=== PATIENT | female | born 1940 | race Caucasian/White ===

== ENCOUNTER 2018-05-26 09:11 | Inpatient (IN) | payer MEDICARE ==
[~2018-05-26] VITALS: Ht 172.7 cm; Wt 64.0 kg
[~2018-05-26 09:11] MED LIST: ARICEPT10 M1 PO; PREVACID30 M2 PO; Z NIFEDIPINE PO; Z.0.ATENOLOL100 MG PO; Z.0.FLEXERIL10 MG PO; Z.0.PLAVIX75 MG PO; Z.0.RESTORIL15 MG PO; Z.0.TRICOR145 MG PO; [UNRECOGNIZED DRUG - OTHER] PO
[2018-05-26] MEDS ORDERED: ONDANSETRON HCL INJ 2 MG/ML VIAL IV STA (09:50)
[2018-05-26] MEDS ORDERED: MORPHINE SULFATE INJ 4 MG/ML INJ IV STA (09:50)
[2018-05-26 10:45] LABS: BASOPHILS % 0.1 % (0.0-1.0); HEMATOCRIT 38.1 % (34.2-44.1); LYMPHOCYTES # (AUTO) 0.9 (1.0-3.2); LYMPHOCYTES % 4.1 % (18.0-39.1); MEAN CORPUSCULAR HGB CONC 34.1 g/dL (31-35); MEAN CORPUSCULAR VOLUME 87.8 fL (81-99); MONOCYTES # (AUTO) 1.3 (0.2-0.8); MONOCYTES % 6.2 % (4.4-11.3); NEUTROPHILS # (AUTO) 19.3 (2.1-6.9); PLATELET COUNT 366 x10e3/uL (140-360); RED BLOOD COUNT 4.34 x10e6/uL (3.6-5.1); RED CELL DISTRIBUTION WIDTH 13.6 % (11.7-14.4)
[2018-05-26 10:50] LABS: BILIRUBIN,URINE NEGATIVE (NEGATIVE); CLARITY,URINE CLEAR (CLEAR); COLOR,URINE YELLOW (YELLOW); KETONES,URINE NEGATIVE (NEGATIVE); LEUKOCYTE ESTERASE ,URINE NEGATIVE (NEGATIVE); NITRITE,URINE NEGATIVE (NEGATIVE); PROTEIN,URINE DIPSTICK 1+ (NEGATIVE); URINE UROBILINOGEN 0.2 mg/dL (0.2 - 1)
[2018-05-26 11:04] LABS: BACTERIA,URINE RARE /HPF; EPITHELIAL CELLS,URINE FEW /LPF
[2018-05-26 11:08] LABS: ALANINE AMINOTRANSFERASE 137 IU/L (0-55); ALBUMIN 4.1 g/dL (3.5-5.0); ALBUMIN/GLOBULIN RATIO 1.1 (0.8-2.0); ALKALINE PHOSPHATASE 93 IU/L (40-150); AMYLASE 2072 U/L (25-125); ANION GAP 17.8 mmol/L (8-16); BLOOD UREA NITROGEN 19 mg/dL (7-26); BUN/CREATININE RATIO 23 (6-25); CALCIUM 9.5 mg/dL (8.4-10.2); CARBON DIOXIDE 26 mmol/L (22-29); CHLORIDE 93 mmol/L (98-107); CREATININE, SERUM 0.82 mg/dL (0.57-1.11); EST GLOMERULAR FILTRATION RATE > 60 ML/MIN (60-); GLUCOSE 177 mg/dL (74-118); POTASSIUM 3.8 mmol/L (3.5-5.1); SODIUM 133 mmol/L (136-145)
[2018-05-26 11:26] LABS: LIPASE 3546 U/L (8-78)
[2018-05-26] MEDS ORDERED: AMLODIPINE BESY10 MG PO (11:34)
[2018-05-26] MEDS ORDERED: FAMOTIDINE20 MG PO (11:34)
[2018-05-26] MEDS ORDERED: TRAZODONE HCL50 MG PO (11:34)
[2018-05-26] MEDS ORDERED: OXYBUTYNIN PO (11:34)
[2018-05-26] MEDS ORDERED: BACLOFEN10 MG PO (11:34)
[2018-05-26] MEDS ORDERED: OMEPRAZOLE40 MG PO (11:34)
[2018-05-26] MEDS: SODIUM CHLORIDE 0.9% 1000ML 1,000 ML IV SCH ×2 (12:54→22:17)
--- NOTE | 2018-05-26 13:19 | Diagnostic Imaging Report ---
PROCEDURE: CT ABDOMEN AND PELVIS WITH CONTRAST TECHNIQUE: The abdomen and pelvis were scanned utilizing a multidetector helical scanner from the diaphragm to the lesser trochanter after the IV administration of 100cc of Isovue 370 and the oral administration of water. Coronal and sagittal multiplanar reformations were obtained. DLP: 174.9 mGy-cm COMPARISON: None. INDICATIONS: EXTENSIVE PAIN IN STOMACH FINDINGS: LOWER THORAX: Scattered foci of tree in bud nodular densities are seen such as in series 2, image 11. HEPATOBILIARY: No focal hepatic lesions. Mild intra-and extrahepatic biliary dilatation. Cholelithiasis. Questionable disruption of the proximal gallbladder wall (series 2, image 32). SPLEEN: No splenomegaly. PANCREAS: No focal masses or ductal dilatation. ADRENALS: No adrenal nodules. Left adrenal thickening, probably due to hyperplasia. KIDNEYS/URETERS: No hydronephrosis or stones. 3.6 cm right inferior pole cyst. 2.2 cm left superior pole exophytic cyst. 3.6 x 2.9 cm medial right renal inferior pole heterogeneously enhancing mass (series 300 image 40). PELVIC ORGANS/BLADDER: Unremarkable. Hysterectomy. PERITONEUM / RETROPERITONEUM: No free air. Small to moderate volume abdominal and pelvic ascites. LYMPH NODES: No lymphadenopathy. VESSELS: Severe aortoiliac atherosclerotic disease. GI TRACT: No wall thickening or evidence of bowel obstruction. Distended stomach. Colonic diverticulosis without evidence of diverticulitis. Normal appendix. BONES AND SOFT TISSUES: Lumbar spine scoliosis with multilevel advanced degenerative changes. IMPRESSION: Cholelithiasis. Evaluation of gallbladder wall and pericholecystic fluid is limited in the presence of ascites. Questionable disruption/microperforation of the proximal gallbladder wall cannot be excluded. Intra-and extrahepatic biliary dilatation. Recommend ERCP or MRCP for further evaluation. Exophytic medial right inferior pole renal mass should be considered renal cell carcinoma unless proven otherwise. Colonic diverticulosis without diverticulitis. Markedly distended stomach, could be due to gastroparesis or less likely gastric outlet obstruction. [id number] volume ascites. Dictated by: Michael Schuler M.D. on 05/26/2018 at 13:24 Electronically approved by: Michael Schuler M.D. on 05/26/2018 at 13:24
[2018-05-26] MEDS ORDERED: ONDANSETRON HCL INJ 2 MG/ML VIAL IV PRN (14:30)
[2018-05-26] MEDS ORDERED: MORPHINE SULFATE 2 MG/ML SYR IV PRN (14:30)
[2018-05-26] MEDS ORDERED: MORPHINE SULFATE INJ 4 MG/ML INJ IV PRN (14:45)
[2018-05-26] MEDS ORDERED: IOPAMIDOL 370 MG/ML 200 ML INFUS..BTL INJ ONE (14:57)
[2018-05-26] MEDS ORDERED: SODIUM CHLORIDE 0.9% 50ML 50 ML ONE (14:57)
[2018-05-26] MEDS ORDERED: VANCOMYCIN 1GM/NS 250 ML 250 ML IV SCH (15:00)
[2018-05-26] MEDS ORDERED: PIPERACILLIN/TAZO 2.25 GM 50 ML IV SCH (15:00)
--- NOTE | 2018-05-26 16:07 | Consultation ---
DATE OF CONSULTATION: May 26, 2018 REFERRING PHYSICIAN: Dr. Dominguez. GASTROENTEROLOGY CONSULTATION REASON FOR CONSULTATION: Elevated LFTs, pancreatitis. HISTORY OF PRESENT ILLNESS: Ms. Lagunas is a 77-year-old woman who comes in with acute onset of abdominal pain, nausea and vomiting. She notes that she has not been feeling well for some time. She has lost about 30 pounds over the past 6 to 8 months. She says she has a low appetite but then sometimes after not eating for a while she is hungry such as currently. She had a stomach ache which has been generalized for a while as well as some nonspecific bloating. She at some spaghetti sauce and then very quickly developed severe abdominal pain 10 out of 10 in the upper central abdomen associated with nausea and vomiting. She is noted to have abnormal LFTs, pancreatitis and possible microperforation of the gallbladder. She is currently nauseous but also asking to eat something. PAST MEDICAL HISTORY: 1. History of left renal mass for which they have declined intervention. 2. Memory problem, rule out dementia. 3. Hypertension. 4. Diabetes. She believes she has had an EGD and colonoscopy within the past year or so, which she does not remember any results. PAST SURGICAL HISTORY: Hysterectomy. MEDICATION S: Reviewed. Please see [facility] medication reconciliation form. ALLERGIES: REVIEWED. PLEASE SEE [facility] MEDICATION RECONCILIATION FORM. SOCIAL HISTORY: Positive for tobacco with ongoing tobacco use. She denies any alcohol. FAMILY HISTORY: Positive for some sort of cancer in her father, but does not remember what kind. Her sister had breast cancer. REVIEW OF SYSTEMS: Ten system review is positive for that mentioned in history of present illness, otherwise unremarkable. PHYSICAL EXAMINATION GENERAL: She is calm, lying in bed in no acute distress. HEENT: Pupils equal, round and reactive to light. She has some asymmetry of her eyelid on the right. NECK: Supple. LUNGS: Clear. CARDIOVASCULAR: S1 and S2. ABDOMEN: Soft. It is protuberant. She is tender throughout diffusely with rebound and a little bit of guarding. Ascites is suspected. EXTREMITIES: No clubbing or cyanosis. PSYCHIATRIC: Calm. A little bit dysphoric at times with questioning. NEUROLOGIC: Seems to have impaired memory, but is awake and cooperative. The electronic health record is reviewed for laboratory and radiologic studies as well as history. ASSESSMENT: 1. Acute pancreatitis. 2. Suspect peritonitis. 3. Ascites secondary to the either perforation or concerning possible malignant process which is more subacute. 4. Possible perforated gallbladder. 5. Cholelithiasis. 6. Biliary dilation, rule out choledocholithiasis. 7. Significant leukocytosis and peritonitis. 8. Significant unintentional weight loss. 9. History of renal mass, concerning for malignancy. PLAN: At the current time, I agree with some aggressive antibiotics. She may benefit from evaluation by oncology. She is already going to be seen by Dr. Mcadams and will defer to him regarding urgent surgery and the possibility of perforated gallbladder. Will need to continue with antiemetics, n.p.o. status, antimicrobials and pain management. Thank you very much for asking me to see Ms. Lagunas. Any questions or concerns, please do not hesitate to contact me. Will follow with you. Job#: [id number]
[2018-05-26 16:50] VITALS: BP 136/61
[2018-05-26 17:27] VITALS: BP 136/61
[2018-05-26 17:31] VITALS: BP 136/61
--- NOTE | 2018-05-26 17:51 | Diagnostic Imaging Report ---
PROCEDURE: MRCP WITHOUT CONTRAST COMPARISON: CT abdomen/pelvis performed on the same date. INDICATIONS: Biliary dilatation. TECHNIQUE: Limited multiplanar multi-sequence imaging of the abdomen was performed without contrast. Heavily T2 weighted MRCP sequences were obtained with MIP 3-D reconstructions. FINDINGS: The common bile duct measures up to 9 mm in diameter, which is mildly dilated. There is no evidence of intraluminal filling defect or stenosis. Mild intrahepatic biliary dilatation. The gallbladder is distended, containing a gallstone measuring 1 cm. There are multiple additional smaller filling defects within distended tubular structure adjacent to gallbladder likely representing stones within distended cystic duct (series 6, images 16-19). Gallbladder wall thickening up to 5 mm. Similar to prior CT, the medial/central portions of gallbladder wall are not well defined (series 6, image 20). Moderate volume abdominal ascites. The spleen, adrenal glands, and pancreas are unremarkable. Bilateral renal cysts and complex right renal inferior pole lesion are again seen, which are better characterized on prior CT with contrast Tortuous abdominal aorta. Lumbar spine scoliosis and degenerative changes. CONCLUSION: 1. Mild biliary dilatation without evidence of choledocholithiasis. 2. Hydropic gallbladder with wall thickening and cholelithiasis. There are also small gallstones within cystic duct. Findings are suspicious for acute cholecystitis with a suspected focal component of wall necrosis. Recommend surgical consult. 3. Moderate volume ascites. 4. Redemonstration of renal lesions which are better characterized on recent CT with contrast. Findings discussed with Todd Boogie at 5:50 PM, on 05/26/2018. Dictated by: Michael Schuler M.D. on 05/26/2018 at 17:56 Electronically approved by: Michael Schuler M.D. on 05/26/2018 at 17:56
--- NOTE | 2018-05-26 19:43 | Consultation ---
DATE OF CONSULTATION: May 26, 2018 CHIEF COMPLAINT: Abdominal pain. HPI: Patient is a 77-year-old female with 5-day history of pain in the epigastric area with one episode of vomiting yesterday. She admits to some subjective fevers. No diarrhea. REVIEW OF SYSTEMS: No chest pain or shortness of breath. PAST MEDICAL HISTORY: Positive for high blood pressure. PAST SURGICAL HISTORY: Positive for hysterectomy. SOCIAL HABITS: Patient admits to smoking, but no alcohol abuse. PHYSICAL EXAMINATION: VITAL SIGNS: Stable. GENERAL: She is afebrile. The patient is awake, alert and in moderate discomfort. HEENT: Sclerae anicteric. NECK: Supple. LUNGS: Clear. HEART: Regular rate and rhythm. ABDOMEN: Soft with guarding, tenderness and rebound in the epigastrium and right upper quadrant. EXTREMITIES: Without cyanosis or edema. LABORATORY DATA: White cell count 21,000, hemoglobin 13, creatinine 0.8. Liver function tests with elevated transaminase and amylase of 2072. MRCP revealing dilatation of the bile duct without choledocholithiasis. There is evidence of acute cholecystitis with gallbladder wall necrosis. There is some ascites. ASSESSMENT: Cholecystitis, possible gangrene. PLAN: Laparoscopic hysterectomy. The patient wanted to postpone until she can contact family members before proceeding tentatively in the morning. Job#: [id number]
[2018-05-26 19:59] VITALS: BP 152/65
[2018-05-26] MEDS ORDERED: HYDRALAZINE HCL 20 MG/ML VIAL IV PRN (20:00)
[2018-05-26] MEDS ORDERED: PIPERACILLIN/TAZOBAC 2.25 GM/SOD CHL 50 ML BAG IV SCH (22:00)
[2018-05-26] MEDS: PIPER-TAZ 3.375 GM 50 ML IV SCH (22:00)
[2018-05-26] MEDS: VANCOMYCIN 1GM/NS 250 ML 250 ML IV SCH (22:17)
[2018-05-27 01:18] VITALS: BP 144/67
[2018-05-27] MEDS: MORPHINE SULFATE INJ 4 MG/ML INJ IV PRN ×4 (02:01→23:26)
[2018-05-27] MEDS: PIPER-TAZ 3.375 GM 50 ML IV SCH ×3 (05:48→23:26)
[2018-05-27 05:50] LABS: BASOPHILS # (AUTO) 0.2 (0.0-0.1); BASOPHILS % 0.6 % (0.0-1.0); HEMATOCRIT 41.6 % (34.2-44.1); HEMOGLOBIN 13.1 g/dL (12.0-16.0); LYMPHOCYTES # (AUTO) 1.2 (1.0-3.2); LYMPHOCYTES % 4.2 % (18.0-39.1); MEAN CORPUSCULAR HGB CONC 31.5 g/dL (31-35); MEAN CORPUSCULAR VOLUME 95.4 fL (81-99); MONOCYTES # (AUTO) 1.8 (0.2-0.8); MONOCYTES % 6.5 % (4.4-11.3); PLATELET COUNT 278 x10e3/uL (140-360); RED BLOOD COUNT 4.36 x10e6/uL (3.6-5.1); RED CELL DISTRIBUTION WIDTH 14.3 % (11.7-14.4)
[2018-05-27 05:53] VITALS: BP 168/73
[2018-05-27] MEDS: SODIUM CHLORIDE 0.9% 1000ML 1,000 ML IV SCH ×3 (06:47→18:04)
[2018-05-27 07:10] LABS: ALANINE AMINOTRANSFERASE 77 IU/L (0-55); ALBUMIN 3.2 g/dL (3.5-5.0); ALKALINE PHOSPHATASE 72 IU/L (40-150); ANION GAP 21.5 mmol/L (8-16); BILIRUBIN,DIRECT 0.4 mg/dL (0.0-0.5); BLOOD UREA NITROGEN 28 mg/dL (7-26); BUN/CREATININE RATIO 35 (6-25); CALCIUM 7.8 mg/dL (8.4-10.2); CARBON DIOXIDE 13 mmol/L (22-29); CHLORIDE 104 mmol/L (98-107); CREATININE, SERUM 0.79 mg/dL (0.57-1.11); EST GLOMERULAR FILTRATION RATE > 60 ML/MIN (60-); GLUCOSE 120 mg/dL (74-118); MAGNESIUM 1.7 MG/DL (1.3-2.1); POTASSIUM 4.5 mmol/L (3.5-5.1); SODIUM 134 mmol/L (136-145)
[2018-05-27 07:40] LABS: LYMPHOCYTES % (MANUAL) 4 % (19-48); MONOCYTES % (MANUAL) 4 % (3.4-9.0); NEUTROPHILS % (MANUAL) 91 % (40-74)
[2018-05-27 07:41] LABS: ANISOCYTOSIS SLIGHT; HYPOCHROMASIA SLIGHT; PLATELET ESTIMATE ADEQUATE; PLATELET MORPHOLOGY COMMENT NORMAL; RBC MORPHOLOGY COMMENT NORMAL
[2018-05-27 08:12] VITALS: BP 180/70
[2018-05-27] MEDS: VANCOMYCIN 1GM/NS 250 ML 250 ML IV SCH ×2 (08:56→21:10)
[2018-05-27] MEDS: PANTOPRAZOLE 40 MG 10ML VIAL IV SCH (09:00)
[2018-05-27] MEDS: ATENOLOL 100 MG TAB PO SCH (09:00)
[2018-05-27] MEDS: OXYBUTYNIN CHLORIDE 5 MG TAB PO SCH (09:00)
[2018-05-27] MEDS ORDERED: NON-FORMULARY MEDICATION (Donepezil Hcl (Aricept) 1 TAB) PO SCH (09:00)
[2018-05-27] MEDS: DONEPEZIL HCL 5 MG TAB PO SCH (09:00)
[2018-05-27] MEDS: TRAZODONE HCL 50 MG TAB PO SCH (09:00)
[2018-05-27] MEDS: BACLOFEN 10 MG TAB PO SCH (09:00)
[2018-05-27] MEDS ORDERED: OXYBUTYNIN 15 MG PO SCH (09:00)
[2018-05-27] MEDS: AMLODIPINE BESYLATE 10 MG TAB PO SCH (09:00)
[2018-05-27 11:56] VITALS: BP 174/76
[2018-05-27] MEDS ORDERED: ONDANSETRON HCL INJ 2 MG/ML VIAL ONE (14:29)
[2018-05-27] MEDS ORDERED: ROCURONIUM BROMIDE 10 MG/ML 5ML VIAL ONE (14:29)
[2018-05-27] MEDS ORDERED: PROPOFOL IV EMULSION 10 MG/ML 20 ML VIAL ONE (14:29)
[2018-05-27] MEDS ORDERED: PHENYLEPHRINE HCL 1% 10 MG/ML VIAL ONE (14:29)
[2018-05-27] MEDS ORDERED: VASOPRESSIN INJ 20 UNIT/ML VIAL ONE (14:29)
[2018-05-27] MEDS ORDERED: SEVOFLURANE INHAL SOLN 250 ML PEN BTL ONE (14:29)
[2018-05-27] MEDS ORDERED: CEFOXITIN SOD 1 GM VIAL ONE (14:29)
[2018-05-27] MEDS ORDERED: DEXAMETHASONE SOD PHOS INJ 4 MG/ML VIAL ONE (14:29)
[2018-05-27] MEDS ORDERED: LIDOCAINE HCL 2% LOCAL INJ 5 ML SDV VIAL INJ ONE (14:29)
[2018-05-27] MEDS ORDERED: BUPIVACAINE 0.25%/EPI 30ML SDV INJ ONE (14:42)
[2018-05-27] MEDS ORDERED: PIPER-TAZ 3.375 GM 50 ML ONE (15:01)
[2018-05-27] MEDS ORDERED: FENTANYL CITRATE/PF 100MCG/2 ML INJ ONE (15:55)
[2018-05-27 17:04] VITALS: BP 174/76
--- NOTE | 2018-05-27 18:02 | Operative Report ---
DATE OF PROCEDURE: May 27, 2018 PREOPERATIVE DIAGNOSIS: Cholecystitis. POSTOPERATIVE DIAGNOSIS: Gangrenous cholecystitis. OPERATIVE PROCEDURE: Laparoscopic cholecystectomy. RISK MODELER: None. ANESTHESIA: General endotracheal, Dr. Maier. INDICATIONS: A 77-year-old female with a several day history of abdominal pain in the epigastric region, which became diffuse. Patient was found to have a gangrenous gallbladder on MRI with ascites. Patient has consented for laparoscopic and possible open cholecystectomy with all attendant risks discussed, including bleeding, infection and organ injury. PROCEDURE FINDINGS: Bilious ascites approximately 1 L in the peritoneal cavity. The gallbladder was completely gangrenous with perforation. DESCRIPTION OF PROCEDURE: Patient was brought to the OR intubated. Abdomen was prepped with alcohol and draped in a sterile fashion. An infraumbilical incision is made and a 10-mm port inserted. Insufflation begun. Under direct vision, other port sites were placed in the midepigastric and right upper quadrant. Gallbladder acutely inflamed and gangrenous with perforation and bilious ascites. The gallbladder was first decompressed with a needle and fundus retracted in a cephalad direction. Neck of the gallbladder retracted laterally. Due to the necrotic nature of the gallbladder wall, the tissue of the gallbladder wall just fell apart. We proceeded to dissect the gallbladder from the liver bed in a retrograde fashion starting at the fundus and working toward the neck of the gallbladder. Cystic artery is isolated, triple clipped and divided. We then identified the cystic duct. It was triple clipped and divided. Also, there is a small abscess duct in the bed of the liver, which was suture ligated with a figure-of-8 stitch of 4-0 Vicryl. The gallbladder was placed in an Endopouch and retrieved out the peritoneal cavity. Operative field was irrigated. Hemostasis achieved. A 19-Australian Dyllan drain placed in the Jules pouch and taken out through the right upper quadrant port site. All ports removed under direct vision. Fascial closure with 0 Vicryl. I failed to mention that 3 L of saline was used to wash out the peritoneal cavity to remove all the bilious ascites. Skin is closed with subcuticular stitch. Patient is extubated and transported to the recovery room. Estimated blood loss 10 mL. Job#: [id number] RI
[2018-05-27 21:23] VITALS: BP 149/67
[2018-05-28] VITALS (7 sets, daily range): BP systolic 126–147; BP diastolic 58–67
[2018-05-28] MEDS: MORPHINE SULFATE INJ 4 MG/ML INJ IV PRN (04:28)
[2018-05-28 05:01] LABS: BASOPHILS % 0.3 % (0.0-1.0); HEMATOCRIT 35.2 % (34.2-44.1); HEMOGLOBIN 11.7 g/dL (12.0-16.0); LYMPHOCYTES # (AUTO) 0.6 (1.0-3.2); LYMPHOCYTES % 4.5 % (18.0-39.1); MEAN CORPUSCULAR HEMOGLOBIN 29.9 pg (28-32); MEAN CORPUSCULAR HGB CONC 33.2 g/dL (31-35); MONOCYTES # (AUTO) 0.9 (0.2-0.8); MONOCYTES % 6.7 % (4.4-11.3); NEUTROPHILS # (AUTO) 11.7 (2.1-6.9); NEUTROPHILS % 88.3 % (38.7-80.0); PLATELET COUNT 288 x10e3/uL (140-360); RED BLOOD COUNT 3.91 x10e6/uL (3.6-5.1); RED CELL DISTRIBUTION WIDTH 14.5 % (11.7-14.4)
[2018-05-28] MEDS: PIPER-TAZ 3.375 GM 50 ML IV SCH ×3 (05:37→22:10)
[2018-05-28 05:50] LABS: AMYLASE 616 U/L (25-125); ANION GAP 13.6 mmol/L (8-16); BLOOD UREA NITROGEN 31 mg/dL (7-26); BUN/CREATININE RATIO 41 (6-25); CALCIUM 7.2 mg/dL (8.4-10.2); CARBON DIOXIDE 21 mmol/L (22-29); CHLORIDE 108 mmol/L (98-107); CREATININE, SERUM 0.75 mg/dL (0.57-1.11); EST GLOMERULAR FILTRATION RATE > 60 ML/MIN (60-); GLUCOSE 104 mg/dL (74-118); LIPASE 169 U/L (8-78); MAGNESIUM 1.4 MG/DL (1.3-2.1); POTASSIUM 3.6 mmol/L (3.5-5.1); SODIUM 139 mmol/L (136-145)
[2018-05-28 05:56] LABS: ALBUMIN 2.4 g/dL (3.5-5.0); BILIRUBIN,DIRECT 0.4 mg/dL (0.0-0.5)
[2018-05-28 07:24] LABS: BAND NEUTROPHILS % (MANUAL) 16 %; HYPOCHROMASIA SLIGHT; LYMPHOCYTES % (MANUAL) 4 % (19-48); MONOCYTES % (MANUAL) 1 % (3.4-9.0); NEUTROPHILS % (MANUAL) 79 % (40-74)
[2018-05-28 07:25] LABS: ANISOCYTOSIS SLIGHT; PLATELET ESTIMATE ADEQUATE; PLATELET MORPHOLOGY COMMENT NORMAL; RBC MORPHOLOGY COMMENT NORMAL
[2018-05-28] MEDS: VANCOMYCIN 1GM/NS 250 ML 250 ML IV SCH ×2 (10:00→20:52)
[2018-05-28] MEDS: OXYBUTYNIN CHLORIDE 5 MG TAB PO SCH (10:00)
[2018-05-28] MEDS: AMLODIPINE BESYLATE 10 MG TAB PO SCH (10:00)
[2018-05-28] MEDS: DONEPEZIL HCL 5 MG TAB PO SCH (10:00)
[2018-05-28] MEDS: ENOXAPARIN SOD INJ 40 MG/0.4 ML SYR SC SCH (10:00)
[2018-05-28] MEDS: BACLOFEN 10 MG TAB PO SCH (10:00)
[2018-05-28] MEDS: ATENOLOL 100 MG TAB PO SCH (10:00)
[2018-05-28] MEDS: PANTOPRAZOLE 40 MG 10ML VIAL IV SCH (10:00)
[2018-05-28] MEDS: TRAZODONE HCL 50 MG TAB PO SCH (10:00)
[2018-05-28] MEDS ORDERED: MORPHINE SULFATE INJ 4 MG/ML INJ IV PRN ×2 (10:00→12:00)
[2018-05-28] MEDS: MORPHINE SULFATE 2 MG/ML SYR IV PRN ×2 (10:21→18:00)
[2018-05-28] MEDS: SODIUM CHLORIDE 0.9% 1000ML 1,000 ML IV SCH ×2 (20:52→21:21)
[2018-05-29] VITALS: BP 132/61
[2018-05-29 04:00] VITALS: BP 130/60
[2018-05-29 04:59] LABS: BASOPHILS # (AUTO) 0.1 (0.0-0.1); BASOPHILS % 0.7 % (0.0-1.0); HEMATOCRIT 31.2 % (34.2-44.1); HEMOGLOBIN 10.3 g/dL (12.0-16.0); LYMPHOCYTES # (AUTO) 0.6 (1.0-3.2); LYMPHOCYTES % 4.5 % (18.0-39.1); MEAN CORPUSCULAR HEMOGLOBIN 29.4 pg (28-32); MEAN CORPUSCULAR VOLUME 89.1 fL (81-99); MONOCYTES # (AUTO) 0.9 (0.2-0.8); MONOCYTES % 6.9 % (4.4-11.3); NEUTROPHILS % 87.4 % (38.7-80.0); PLATELET COUNT 284 x10e3/uL (140-360); RED CELL DISTRIBUTION WIDTH 15.1 % (11.7-14.4)
[2018-05-29 05:21] LABS: ALANINE AMINOTRANSFERASE 36 IU/L (0-55); ALBUMIN 1.7 g/dL (3.5-5.0); ALKALINE PHOSPHATASE 46 IU/L (40-150); AMYLASE 344 U/L (25-125); ANION GAP 12.1 mmol/L (8-16); BILIRUBIN,DIRECT 0.4 mg/dL (0.0-0.5); BLOOD UREA NITROGEN 37 mg/dL (7-26); BUN/CREATININE RATIO 43 (6-25); CARBON DIOXIDE 19 mmol/L (22-29); CHLORIDE 112 mmol/L (98-107); CREATININE, SERUM 0.86 mg/dL (0.57-1.11); EST GLOMERULAR FILTRATION RATE > 60 ML/MIN (60-); GLUCOSE 103 mg/dL (74-118); LIPASE 67 U/L (8-78); MAGNESIUM 1.3 MG/DL (1.3-2.1); POTASSIUM 3.1 mmol/L (3.5-5.1); SODIUM 140 mmol/L (136-145)
[2018-05-29 05:33] LABS: CALCIUM 6.8 mg/dL (8.4-10.2)
[2018-05-29] MEDS: PIPER-TAZ 3.375 GM 50 ML IV SCH ×3 (06:10→21:20)
[2018-05-29] MEDS: SODIUM CHLORIDE 0.9% 1000ML 1,000 ML IV SCH (06:10)
[2018-05-29 07:09] LABS: BAND NEUTROPHILS % (MANUAL) 11 %; LYMPHOCYTES % (MANUAL) 10 % (19-48); MONOCYTES % (MANUAL) 7 % (3.4-9.0); NEUTROPHILS % (MANUAL) 70 % (40-74)
[2018-05-29 07:10] LABS: ANISOCYTOSIS SLIGHT; HYPOCHROMASIA SLIGHT; PLATELET ESTIMATE ADEQUATE; PLATELET MORPHOLOGY COMMENT NORMAL; POIKILOCYTOSIS SLIGHT; RBC MORPHOLOGY COMMENT NORMAL
[2018-05-29] MEDS ORDERED: POTASSIUM CHLORIDE 20 MEQ TAB CR PO ONE (07:15)
[2018-05-29 07:30] VITALS: BP 138/58
[2018-05-29] MEDS ORDERED: CALCIUM GLUCONATE 10% INJ 13.95 MEQ in SODIUM CHLORIDE 0.9% 100 ML 100 ML IV ONE (07:30)
[2018-05-29] MEDS: OXYBUTYNIN CHLORIDE 5 MG TAB PO SCH (09:00)
[2018-05-29] MEDS: TRAZODONE HCL 50 MG TAB PO SCH (09:00)
[2018-05-29] MEDS: AMLODIPINE BESYLATE 10 MG TAB PO SCH (09:00)
[2018-05-29] MEDS: ENOXAPARIN SOD INJ 40 MG/0.4 ML SYR SC SCH (09:00)
[2018-05-29] MEDS: BACLOFEN 10 MG TAB PO SCH (09:00)
[2018-05-29] MEDS: ATENOLOL 100 MG TAB PO SCH (09:00)
[2018-05-29] MEDS: DONEPEZIL HCL 5 MG TAB PO SCH (09:00)
[2018-05-29] MEDS: VANCOMYCIN 1GM/NS 250 ML 250 ML IV SCH ×2 (09:00→21:00)
[2018-05-29 09:25] VITALS: BP 138/58
[2018-05-29] MEDS ORDERED: SINCALIDE 3 MCG/VIAL INJ ONE (11:46)
[2018-05-29] MEDS: MORPHINE SULFATE 2 MG/ML SYR IV PRN ×2 (15:30→22:20)
[2018-05-29] MEDS: PANTOPRAZOLE 40 MG 10ML VIAL IV SCH (15:48)
--- NOTE | 2018-05-29 15:59 | Diagnostic Imaging Report ---
Post-cholecystectomy hepatobiliary scan for bile leak Clinical information: 77 F 2 days s/p laparoscopic cholecystectomy; concern for bile leak Report: Following intravenous administration of 7 mCi of technetium-99m mebrofenin, dynamic images of the abdomen in the anterior projection were obtained through 90 minutes. Perfusion to the liver is normal. Extraction of tracer by the liver parenchyma is mildly prolonged. Tracer appears in the biliary tract by 15 minutes post injection. No tracer is seen within the small bowel during the study although the common bile duct does not appear dilated. There is no tracer seen to suggest a remnant cystic duct. There is no reflux of tracer from the duodenum to the stomach seen during the imaging time. Some increased pooling of tracer is seen in the region of the right hepatic duct although this tracer appears to drain normally to the hepatic and common bile ducts. Tracer also appears within two drains, one that extends from the gallbladder fossa and one that appears over the dome of the liver. Not tracer appears to move freely within the peritoneal cavity or in the pericolic gutters. Impression: Scan evidence of bile leak into two drains placed in the gallbladder fossa and over the dome of the liver. No free leak of bile into the peritoneal cavity or in either pericolic gutter. Signed by: Dr. Lily Soto M.D. on 05/29/2018 3:55 PM
[2018-05-29] MEDS: ACETAMINOPHEN/CODEINE 300MG - 30MG TAB PO PRN (19:53)
[2018-05-29 20:00] VITALS: BP 100/50
[2018-05-29] MEDS: ONDANSETRON HCL INJ 2 MG/ML VIAL IV PRN (22:20)
[2018-05-30] VITALS (48 sets, daily range): BP systolic 69–125; BP diastolic 34–75
[2018-05-30 04:34] LABS: BASOPHILS # (AUTO) 0.1 (0.0-0.1); BASOPHILS % 0.9 % (0.0-1.0); HEMATOCRIT 33.1 % (34.2-44.1); LYMPHOCYTES # (AUTO) 0.8 (1.0-3.2); LYMPHOCYTES % 5.3 % (18.0-39.1); MEAN CORPUSCULAR HEMOGLOBIN 29.8 pg (28-32); MEAN CORPUSCULAR HGB CONC 33.2 g/dL (31-35); MEAN CORPUSCULAR VOLUME 89.7 fL (81-99); MONOCYTES # (AUTO) 1.1 (0.2-0.8); MONOCYTES % 7.1 % (4.4-11.3); NEUTROPHILS # (AUTO) 12.6 (2.1-6.9); NEUTROPHILS % 84.8 % (38.7-80.0); PLATELET COUNT 303 x10e3/uL (140-360); RED BLOOD COUNT 3.69 x10e6/uL (3.6-5.1)
[2018-05-30 04:48] LABS: ANION GAP 14.3 mmol/L (8-16); BLOOD UREA NITROGEN 40 mg/dL (7-26); BUN/CREATININE RATIO 47 (6-25); CALCIUM 7.8 mg/dL (8.4-10.2); CARBON DIOXIDE 16 mmol/L (22-29); CHLORIDE 118 mmol/L (98-107); CREATININE, SERUM 0.86 mg/dL (0.57-1.11); EST GLOMERULAR FILTRATION RATE > 60 ML/MIN (60-); GLUCOSE 81 mg/dL (74-118); MAGNESIUM 1.5 MG/DL (1.3-2.1); POTASSIUM 3.3 mmol/L (3.5-5.1); SODIUM 145 mmol/L (136-145)
[2018-05-30] MEDS: PIPER-TAZ 3.375 GM 50 ML IV SCH ×3 (06:03→23:19)
[2018-05-30 06:24] LABS: BAND NEUTROPHILS % (MANUAL) 4 %; LYMPHOCYTES % (MANUAL) 7 % (19-48); MONOCYTES % (MANUAL) 5 % (3.4-9.0); NEUTROPHILS % (MANUAL) 84 % (40-74)
[2018-05-30 06:25] LABS: ANISOCYTOSIS MODERATE; BURR CELLS SLIGHT; PLATELET ESTIMATE ADEQUATE; PLATELET MORPHOLOGY COMMENT NORMAL; RBC MORPHOLOGY COMMENT ABNORMAL
[2018-05-30] MEDS ORDERED: LACTATED RINGER'S 1,000 ML ONE ×2 (06:26→23:08)
[2018-05-30] MEDS ORDERED: LACTATED RINGER'S 1,000 ML IV ONE ×2 (06:30→08:00)
[2018-05-30] MEDS ORDERED: POTASSIUM CHLORIDE 20 MEQ TAB CR PO ONE (07:30)
[2018-05-30] MEDS: LACTATED RINGER'S 1,000 ML IV SCH ×2 (08:02→12:04)
[2018-05-30] MEDS: PANTOPRAZOLE 40 MG 10ML VIAL IV SCH (08:22)
[2018-05-30] MEDS: OXYBUTYNIN CHLORIDE 5 MG TAB PO SCH (08:22)
[2018-05-30] MEDS: DONEPEZIL HCL 5 MG TAB PO SCH (08:22)
[2018-05-30] MEDS: ENOXAPARIN SOD INJ 40 MG/0.4 ML SYR SC SCH (08:23)
[2018-05-30] MEDS: BACLOFEN 10 MG TAB PO SCH (08:23)
[2018-05-30] MEDS: ATENOLOL 100 MG TAB PO SCH (08:23)
[2018-05-30] MEDS: OYST-CAL-D 500MG TABLET PO SCH ×2 (08:23→14:33)
[2018-05-30] MEDS: AMLODIPINE BESYLATE 10 MG TAB PO SCH (08:23)
[2018-05-30] MEDS: TRAZODONE HCL 50 MG TAB PO SCH (08:25)
[2018-05-30] MEDS: ACETAMINOPHEN/CODEINE 300MG - 30MG TAB PO PRN ×3 (08:58→23:20)
[2018-05-30 10:04] LABS: HEMATOCRIT 33.7 % (34.2-44.1); LYMPHOCYTES # (AUTO) 0.9 (1.0-3.2); LYMPHOCYTES % 5.5 % (18.0-39.1); MEAN CORPUSCULAR HEMOGLOBIN 30.1 pg (28-32); MEAN CORPUSCULAR HGB CONC 32.6 g/dL (31-35); MEAN CORPUSCULAR VOLUME 92.1 fL (81-99); MONOCYTES # (AUTO) 1.2 (0.2-0.8); MONOCYTES % 7.2 % (4.4-11.3); NEUTROPHILS # (AUTO) 13.8 (2.1-6.9); NEUTROPHILS % 85.4 % (38.7-80.0); PLATELET COUNT 273 x10e3/uL (140-360); RED BLOOD COUNT 3.66 x10e6/uL (3.6-5.1); RED CELL DISTRIBUTION WIDTH 15.4 % (11.7-14.4)
[2018-05-30 10:28] LABS: ALANINE AMINOTRANSFERASE 24 IU/L (0-55); ALBUMIN 1.5 g/dL (3.5-5.0); ALBUMIN/GLOBULIN RATIO 0.6 (0.8-2.0); ALKALINE PHOSPHATASE 50 IU/L (40-150); ANION GAP 15.6 mmol/L (8-16); BLOOD UREA NITROGEN 41 mg/dL (7-26); BUN/CREATININE RATIO 47 (6-25); CALCIUM 7.8 mg/dL (8.4-10.2); CARBON DIOXIDE 14 mmol/L (22-29); CHLORIDE 118 mmol/L (98-107); CREATININE, SERUM 0.88 mg/dL (0.57-1.11); EST GLOMERULAR FILTRATION RATE > 60 ML/MIN (60-); GLUCOSE 96 mg/dL (74-118); POTASSIUM 3.6 mmol/L (3.5-5.1); SODIUM 144 mmol/L (136-145)
[2018-05-30 11:13] LABS: BAND NEUTROPHILS % (MANUAL) 3 %; LYMPHOCYTES % (MANUAL) 7 % (19-48); MONOCYTES % (MANUAL) 7 % (3.4-9.0); NEUTROPHILS % (MANUAL) 83 % (40-74)
[2018-05-30 11:14] LABS: HYPOCHROMASIA SLIGHT; PLATELET ESTIMATE ADEQUATE
[2018-05-30 11:15] LABS: ANISOCYTOSIS MODERATE; PLATELET MORPHOLOGY COMMENT FEW LARGE; RBC MORPHOLOGY COMMENT ABNORMAL
[2018-05-30] MEDS ORDERED: GADOBENATE DIMEGLUMINE 1 ML IV ONE (12:33)
[2018-05-30] MEDS ORDERED: LACTATED RINGER'S 500 ML IV ONE (14:00)
--- NOTE | 2018-05-30 14:46 | Diagnostic Imaging Report ---
EXAM: MR Abdomen WITHOUT and WITH Contrast Magnetic Resonance Cholangiopancreatography (M.R.C.P.) INDICATION: \S\POST OP BILE LEAKAGE COMPARISON: HIDA scan 05/29/2018, MRI 05/26/2018 TECHNIQUE: Multiplanar and multisequence imaging was performed of the abdomen without and with contrast. T1-weighted, T2-weighted images, T1-weighted in and [id number], and Diffusion weighted images. Dynamic, post gadolinium T1-weighted spoiled gradient echo scans. M.R.C.P. Technique: Multiplanar, multisequence MRCP was performed, with sequences including coronal turbo spin-echo T1-weighted scans, [facility] MRCP scans, coronal spin, coronal MPR 2, SMRCP 3D HR, [facility] MRCP TESFAYE. IV Contrast: 10 mL of Gadavist gadolinium Oral Contrast: None Medications: None COMPLICATIONS: None FINDINGS: LOWER THORAX: Moderate pleural effusions, previously trace. HEPATOBILIARY: No focal hepatic lesions. No biliary ductal dilation. GALLBLADDER: Cholecystectomy. SPLEEN: No splenomegaly. PANCREAS: No focal masses or ductal dilatation. ADRENALS: Thickened left adrenal gland. No adrenal nodules KIDNEYS/URETERS: Kidneys enhance symmetrically. No hydronephrosis. Enhancing 3.2 x 3.3 cm mass in the anteromedial right kidney. Renal cysts measuring up to 3.1 cm on the right and 2.3 cm on the left. No stones. GI TRACT: Multiple distended loops of bowel within the visualized abdomen. LYMPH NODES: No lymphadenopathy. VESSELS: Unremarkable. PERITONEUM / RETROPERITONEUM: Decreased ascites from 05/26/2018. Persistent T2 hyperintense fluid within the joel hepatis and visualized upper abdomen. Some of the fluid appears partially loculated and T1 intermediate in signal. BONES: Unremarkable. SOFT TISSUES: Drainage catheter within the right upper quadrant. IMPRESSION: 1. Nonspecific fluid in the upper abdomen. Differentiation between bile and ascites/post-operative fluid is limited. Consider evaluation with hepatobiliary contrast (Eovist) or reevaluation with HIDA, and correlation with drain output. Of note, ascites was reported to be bilious on operative note, and the amount of ascites has decreased since 05/26/2018. 2. Dilated small bowel loops within the visualized upper abdomen. Findings may reflect ileus or partial small bowel obstruction. 3. Enhancing right renal mass concerning for renal cell carcinoma. 4. Moderate pleural effusions. Signed by: DR. Pako Ortiz MD on 05/30/2018 2:42 PM
--- NOTE | 2018-05-30 16:35 | Diagnostic Imaging Report ---
EXAMINATION: CHEST XRAY LINE PLACEMENT INDICATION: \S\right IJ TLC placement COMPARISON: None FINDINGS: AP view TUBES and LINES: Right IJ catheter with tip overlying the cavoatrial junction. LUNGS: Lungs are well inflated. Lungs are clear. There is no evidence of pneumonia or pulmonary edema. PLEURA: Hazy bibasilar opacities likely representing layering effusions. HEART AND MEDIASTINUM: Aortic arch calcifications. The cardiomediastinal silhouette is otherwise unremarkable. BONES AND SOFT TISSUES: No acute osseous lesion. Soft tissues are unremarkable. UPPER ABDOMEN: No free air under the diaphragm. Partially visualized air-filled stomach. IMPRESSION: Right IJ venous catheter tip overlies the cavoatrial junction. Signed by: DR. Pako Ortiz MD on 05/30/2018 4:32 PM
[2018-05-30] MEDS: NOREPINEPHRINE INJ 4MG/4ML 8 MG in DEXTROSE 5% 250ML 250 ML IV SCH ×2 (17:43→23:15)
[2018-05-30] MEDS ORDERED: METOPROLOL TARTRATE INJ 1 MG/ML VIAL IV PRN (18:30)
[2018-05-30] MEDS ORDERED: MAGNESIUM SULFATE 2GM/50ML 50 ML IV ONE (19:00)
--- NOTE | 2018-05-30 19:41 | Consultation ---
DATE OF CONSULTATION: May 30, 2018 REASON FOR CONSULTATION: Septic shock; recommendations for antibiotics. HISTORY OF PRESENT ILLNESS: This is a very pleasant 77-year-old female who has been having back pain for years, but the last few days before she came here her pain was getting progressively worse. She came to the emergency room because she was feeling really bad. In the emergency room, she was evaluated and she was found to have elevated liver enzymes, pancreatitis. Patient was admitted and underwent cholecystectomy. The patient was found to have gangrenous cholecystitis. Patient underwent surgery and infectious disease was consulted. There was some problem with her blood pressure being on low side today. This is day 4. Patient was admitted on May 26 and today is May 30. The patient is a little bit alert, follows some commands. She does have underlying history of dementia, as I understand. PAST MEDICAL HISTORY: Back pain and diabetes. Memory problems. Early dementia. PAST SURGICAL HISTORY: Hysterectomy. ALLERGIES: NKA. SOCIAL HISTORY: There is no drug abuse or alcohol abuse, but she does smoke. MEDICATION: List reviewed. She is on Tylenol No. 3. She is on Zosyn and vancomycin. PHYSICAL EXAMINATION: GENERAL: She is currently alert, confused and does not seem to be in acute distress. VITALS: Stable. Heart rate 138. Respirations 20. Blood pressure 113/50. It was in the 90s all day before that. HEENT: She is not icteric. NECK: Supple. CHEST: Clear. HEART: S1 and S2. No murmur. ABDOMEN: Soft. Bowel sounds present. No tenderness. EXTREMITIES: No edema. She does have cholecystostomy tube. The patient underwent surgery on May 30. The patient did have a bile leak and ERCP stent was placed yesterday. Patient did have a cholecystectomy. She had laparoscopic cholecystectomy on May 27 and today she was found to have bile leak. She underwent ERCP with stent placement. She has been running low today, so infectious disease was consulted. IMPRESSION: 1. Sepsis, cholecystitis, pancreatitis, bile leak with peritonitis. 2. History of hypertension. PLAN: Continue Zosyn and continue vancomycin. Obtain blood cultures. Will add fluconazole at the present time. Continue supportive care. Will follow with you. Will follow vancomycin trough. Recheck CBC. Recheck chem panel. Check amylase and lipase. Further recommendations to follow. Job#: [id number] GH
[2018-05-30] MEDS: FLUCONAZOLE 400MG/200ML BAG 200 ML IV SCH (20:07)
[2018-05-30] MEDS: VANCOMYCIN 1GM/NS 250 ML 250 ML IV SCH (21:00)
[2018-05-30] MEDS ORDERED: NOREPINEPHRINE 8 MG/D5W 250 ML 250 ML ONE (23:08)
[2018-05-31] VITALS (92 sets, daily range): BP systolic 96–136; BP diastolic 46–81
[2018-05-31] MEDS: ACETAMINOPHEN/CODEINE 300MG - 30MG TAB PO PRN ×2 (04:34→16:09)
--- NOTE | 2018-05-31 04:38 | Consultation ---
DATE OF CONSULTATION: May 31, 2018 REASON FOR REFERRAL: Postoperative state. HISTORY OF PRESENT ILLNESS: Ms. Lagunas is a pleasant 77-year-old female with postoperative state. The patient presented to [facility] on May 26, 2018. The patient was having about 30 pounds of weight loss. The patient was not feeling well at that time. She had some low appetite. She developed severe abdominal pain. The patient was known to have abnormal LFTs, pancreatitis and possible microperforation of the gallbladder. She was admitted. The patient was having cholecystitis clinically. She went for operative management after MRI suggested gangrenous gallbladder. In the procedure, there was 1 L of bilious ascites in the peritoneal cavity and there was overt perforation and gangrene of the gallbladder. PAST MEDICAL HISTORY 1. Back pain. 2. Diabetes. 3. Early dementia. 4. Hypertension. MEDICATION: Medication list reviewed per electronic record. ALLERGIES: UNKNOWN BLOOD PRESSURE MEDICINE, CEPHALEXIN, ASPIRIN, SULFA. FAMILY HISTORY: Noncontributory other than this. SOCIAL HISTORY: The patient smoked from age 15 to active, 1 pack per day. No alcohol. No drugs. The patient is a preschool paraprofessional. REVIEW OF SYSTEMS: Could not get reliably as the patient is altered. OBJECTIVE VITAL SIGNS: Afebrile. Vital signs noted per electronic record to be totally unstable. HEENT: Normocephalic, atraumatic. Throat midline. GENERAL: In bed, facing up. NECK: Supple. LUNGS: Bilateral air entry, a few crackles. CARDIOVASCULAR: S1, S2. No murmurs, rubs or gallops. ABDOMEN: Soft, nontender. EXTREMITIES: No clubbing, no cyanosis. There is no edema. INTEGUMENT: No rash or purpura. LABS: White count 16, hematocrit 34, platelets 217,000. Potassium 3.6, BUN 41, creatinine 0.9. IMPRESSION 1. Acute cholecystitis, gangrenous. 2. Bilious ascites, peritonitis. 3. Hypertension. 4. Encephalopathy. 5. Shock, septic. 6. Portal hypertension. 7. Chronic smoker. 8. History of left renal mass. 9. Possible diabetes. PLAN: Continue to follow up closely in the ICU. Adjust pressors. Continue IV fluid. Try to avoid intubation. Smoking cessation highly recommended. Continue IV antibiotics. Follow along closely. The patient is in critical condition and received some fluid boluses earlier. Job#: [id number] TONY
[2018-05-31 04:56] LABS: BASOPHILS % 0.1 % (0.0-1.0); EOSINOPHILS % 0.1 % (0.0-6.0); HEMATOCRIT 30.4 % (34.2-44.1); HEMOGLOBIN 10.1 g/dL (12.0-16.0); LYMPHOCYTES # (AUTO) 1.1 (1.0-3.2); LYMPHOCYTES % 6.5 % (18.0-39.1); MEAN CORPUSCULAR HEMOGLOBIN 29.4 pg (28-32); MEAN CORPUSCULAR HGB CONC 33.2 g/dL (31-35); MEAN CORPUSCULAR VOLUME 88.4 fL (81-99); MONOCYTES # (AUTO) 1.1 (0.2-0.8); MONOCYTES % 6.3 % (4.4-11.3); NEUTROPHILS # (AUTO) 14.1 (2.1-6.9); NEUTROPHILS % 84.2 % (38.7-80.0); PLATELET COUNT 303 x10e3/uL (140-360); RED BLOOD COUNT 3.44 x10e6/uL (3.6-5.1); RED CELL DISTRIBUTION WIDTH 15.4 % (11.7-14.4)
[2018-05-31 05:16] LABS: ALBUMIN 1.5 g/dL (3.5-5.0); ANION GAP 10.7 mmol/L (8-16); BILIRUBIN,DIRECT 0.4 mg/dL (0.0-0.5); CALCIUM 8.6 mg/dL (8.4-10.2); CREATININE, SERUM 0.91 mg/dL (0.57-1.11); MAGNESIUM 1.9 MG/DL (1.3-2.1); POTASSIUM 3.7 mmol/L (3.5-5.1)
[2018-05-31 05:41] LABS: AMYLASE 148 U/L (25-125); LIPASE 29 U/L (8-78)
[2018-05-31] MEDS: PIPER-TAZ 3.375 GM 50 ML IV SCH ×3 (05:51→23:13)
[2018-05-31] MEDS: ONDANSETRON HCL INJ 2 MG/ML VIAL IV PRN ×2 (06:55→16:10)
[2018-05-31 07:27] LABS: LYMPHOCYTES % (MANUAL) 5 % (19-48); MONOCYTES % (MANUAL) 1 % (3.4-9.0); NEUTROPHILS % (MANUAL) 94 % (40-74)
[2018-05-31 07:28] LABS: ANISOCYTOSIS SLIG; HYPOCHROMASIA SLIGHT; POIKILOCYTOSIS SLIGHT
[2018-05-31 07:29] LABS: PLATELET ESTIMATE ADEQUATE; PLATELET MORPHOLOGY COMMENT FEW LARGE; RBC MORPHOLOGY COMMENT NORMAL
[2018-05-31] MEDS: DONEPEZIL HCL 5 MG TAB PO SCH (09:00)
[2018-05-31] MEDS: BACLOFEN 10 MG TAB PO SCH (09:00)
[2018-05-31] MEDS: OYST-CAL-D 500MG TABLET PO SCH ×2 (09:00→17:00)
[2018-05-31] MEDS: PANTOPRAZOLE 40 MG 10ML VIAL IV SCH (09:00)
[2018-05-31] MEDS: OXYBUTYNIN CHLORIDE 5 MG TAB PO SCH (09:00)
[2018-05-31] MEDS: ENOXAPARIN SOD INJ 40 MG/0.4 ML SYR SC SCH (09:00)
[2018-05-31] MEDS: TRAZODONE HCL 50 MG TAB PO SCH (09:00)
[2018-05-31] MEDS: PROMETHAZINE 12.5MG/ NACL 0.9% 12.5 MG/50 ML BAG IV PRN ×2 (09:30→20:59)
[2018-05-31] MEDS: MORPHINE SULFATE 2 MG/ML SYR IV PRN (09:30)
[2018-05-31] MEDS ORDERED: SODIUM CHLORIDE 0.9% 250ML 0 ML ONE (09:36)
[2018-05-31 12:51] LABS: CHOL/HDL RATIO 5.1 (3.0-3.6); PHOSPHORUS 2.8 MG/DL (2.3-4.7)
[2018-05-31 13:13] LABS: FREE THYROXINE INDEX 0.8808 (1.4-3.8); THYROID STIMULATING HORMONE 1.27 uIU/mL (0.350-4.940)
[2018-05-31] MEDS: LACTATED RINGER'S 1,000 ML IV SCH (16:00)
[2018-05-31] MEDS ORDERED: LACTATED RINGER'S 1,000 ML ONE (16:06)
[2018-05-31] MEDS: FLUCONAZOLE 400MG/200ML BAG 200 ML IV SCH (18:16)
--- NOTE | 2018-05-31 20:34 | Progress Note ---
DATE: May 31, 2018 PULMONARY MEDICINE PROGRESS NOTE ADDENDUM Patient seen and examined during day shift. Epinephrine now down to 50 mcg per minute. Patient remains confused. Getting intermittent medicines for pain. Patient with urine output that is slightly better from where it was last night. Baclofen on hold due to excessive somnolence. OBJECTIVE VITALS: Unstable as per records. GENERAL: Still the same general appearance, although a lot more sleepy right now after getting medicine. IMPRESSIONS AND PLAN 1. Shock, septic. Continue wean down the Levophed if possible. 2. . Continue ensure safety. Follow up closely. Avoid oversedating. Will keep patient comfortable enough to go through this. 3. Peritonitis. Gallbladder rupture. 4. Continue postoperative wound care. Continue antibiotics. Follow along closely. 5. Acute kidney injury creatinine is 0.9 today, much better. Continue IV fluids for which patient received boluses yesterday. Will give a daily rate. Will repeat x-ray tomorrow to reassess fluid status. Follow along closely and follow electrolytes. Greater than 30 minutes of great care over this date with multiple evaluations. Job#: [id number]
[2018-05-31] MEDS: VANCOMYCIN 1GM/NS 250 ML 250 ML IV SCH (23:13)
[2018-06-01] VITALS (71 sets, daily range): BP systolic 88–124; BP diastolic 36–77
[2018-06-01] MEDS: LACTATED RINGER'S 1,000 ML IV SCH ×3 (03:26→22:58)
[2018-06-01 05:08] LABS: ALANINE AMINOTRANSFERASE 16 IU/L (0-55); ALBUMIN 1.4 g/dL (3.5-5.0); ALBUMIN/GLOBULIN RATIO 0.5 (0.8-2.0); ALKALINE PHOSPHATASE 56 IU/L (40-150); ANION GAP 11.7 mmol/L (8-16); BLOOD UREA NITROGEN 32 mg/dL (7-26); BUN/CREATININE RATIO 44 (6-25); CALCIUM 8.4 mg/dL (8.4-10.2); CARBON DIOXIDE 20 mmol/L (22-29); CHLORIDE 114 mmol/L (98-107); CREATININE, SERUM 0.72 mg/dL (0.57-1.11); EST GLOMERULAR FILTRATION RATE > 60 ML/MIN (60-); GLUCOSE 90 mg/dL (74-118); MAGNESIUM 1.3 MG/DL (1.3-2.1); PHOSPHORUS 2.9 MG/DL (2.3-4.7); POTASSIUM 3.7 mmol/L (3.5-5.1); SODIUM 142 mmol/L (136-145)
[2018-06-01] MEDS: PIPER-TAZ 3.375 GM 50 ML IV SCH ×3 (05:11→22:51)
[2018-06-01 05:20] LABS: BASOPHILS # (AUTO) 0.1 (0.0-0.1); BASOPHILS % 0.5 % (0.0-1.0); EOSINOPHILS % 0.3 % (0.0-6.0); HEMATOCRIT 28.1 % (34.2-44.1); HEMOGLOBIN 9.3 g/dL (12.0-16.0); LYMPHOCYTES # (AUTO) 0.9 (1.0-3.2); LYMPHOCYTES % 5.5 % (18.0-39.1); MEAN CORPUSCULAR HGB CONC 33.1 g/dL (31-35); MEAN CORPUSCULAR VOLUME 90.6 fL (81-99); MONOCYTES # (AUTO) 0.9 (0.2-0.8); MONOCYTES % 5.5 % (4.4-11.3); NEUTROPHILS # (AUTO) 13.8 (2.1-6.9); NEUTROPHILS % 86.4 % (38.7-80.0); PLATELET COUNT 257 x10e3/uL (140-360); RED CELL DISTRIBUTION WIDTH 15.6 % (11.7-14.4)
[2018-06-01 06:32] LABS: LYMPHOCYTES % (MANUAL) 2 % (19-48); MONOCYTES % (MANUAL) 2 % (3.4-9.0); NEUTROPHILS % (MANUAL) 96 % (40-74)
[2018-06-01 06:34] LABS: ANISOCYTOSIS SLIG; HYPOCHROMASIA SLIGHT; POIKILOCYTOSIS SLIGHT; RBC MORPHOLOGY COMMENT NORMAL
[2018-06-01 06:37] LABS: PLATELET ESTIMATE ADEQUATE; PLATELET MORPHOLOGY COMMENT NORMAL
--- NOTE | 2018-06-01 06:47 | Diagnostic Imaging Report ---
EXAM: CHEST SINGLE (PORTABLE), AP 1 view INDICATION: CHF COMPARISON: AP view of the chest May 30, 2018 FINDINGS: LINES/TUBES: Stable position of right internal jugular vein central line. LUNGS: No consolidations PLEURA: Bilateral pleural effusions. HEART AND MEDIASTINUM: Stable BONES AND SOFT TISSUES: No acute findings. IMPRESSION: No interval change. Signed by: Dr. Klaudia Ocampo M.D. on 06/01/2018 6:44 AM
[2018-06-01] MEDS: PANTOPRAZOLE 40 MG 10ML VIAL IV SCH (07:45)
[2018-06-01] MEDS: ONDANSETRON HCL INJ 2 MG/ML VIAL IV PRN (07:46)
[2018-06-01] MEDS: ENOXAPARIN SOD INJ 40 MG/0.4 ML SYR SC SCH (08:30)
[2018-06-01] MEDS: OYST-CAL-D 500MG TABLET PO SCH ×2 (08:30→16:06)
[2018-06-01] MEDS: ACETAMINOPHEN/CODEINE 300MG - 30MG TAB PO PRN (12:06)
[2018-06-01] MEDS ORDERED: NYSTATIN SUSPENSION 5 ML UDC PO PRN (12:45)
[2018-06-01] MEDS ORDERED: FUROSEMIDE INJ 10 MG/ML 2 ML VIAL IV NR (13:00)
[2018-06-01] MEDS ORDERED: POTASSIUM CHLORIDE 20 MEQ TAB CR PO NR (13:15)
[2018-06-01] MEDS: NOREPINEPHRINE INJ 4MG/4ML 8 MG in DEXTROSE 5% 250ML 250 ML IV SCH (15:15)
[2018-06-01] MEDS: NYSTATIN SUSPENSION 5 ML UDC PO SCH ×2 (16:06→22:58)
[2018-06-01] MEDS: FLUCONAZOLE 400MG/200ML BAG 200 ML IV SCH (17:50)
--- NOTE | 2018-06-01 18:53 | Progress Note ---
DATE: June 01, 2018 PULMONARY MEDICINE PROGRESS NOTE SUBJECTIVE: Ms. Lagunas was seen and examined at bedside. She continues to have slowly improving mentation. Today, she is alert and oriented times 2, but she is easily redirected to oriented times 3 status. She is concerned about going back to work at this point. I am calling in and letting them know that she cannot come in. She is not eating too much. She is on clear liquid diet. 99% oxygen saturation on 2 L per minute by nasal cannula. 2.7 L in, 1.3 L out. She is on lactated Ringers IV fluid 90 mL per hour. Chest x-ray which shows some early overload. REVIEW OF SYSTEMS: No headaches, no rash. OBJECTIVE VITAL SIGNS: Afebrile, vital signs noted per electronic record. GENERAL: No acute distress, alert and calm. HEENT: Normocephalic, atraumatic. Throat midline. NECK: Supple. LUNGS: Bilateral air entry. A few rales. CARDIOVASCULAR: S1, S2. No murmurs, rubs or gallops. ABDOMEN: Soft, postoperative, nontender. Drain in place. INTEGUMENT: No rash. No purpura. EXTREMITIES: No clubbing, no cyanosis. LABS: Potassium 3.7, BUN 32, creatinine 0.7. White count 16, hematocrit 28, platelets 257,000. BNP 740. Albumin 1.7. Lipase 292. Urinalysis, 6-10 white cells per high-power field. IMPRESSION 1. Gangrenous cholecystitis, acute. 2. Postoperative state, status post laparoscopic cholecystectomy. 3. Enhancing right mass concerning for renal cell carcinoma. 4. Acute kidney injury, risk. 5. Shock septic, resolve. PLAN: Continue some IV fluid. Continue to enhance oral intake. She is not in any distress. Will continue IV fluids. Repeat chest x-ray tomorrow. The patient will continue on IV antibiotic at this time. I will discuss with others including for that renal finding from the MRCP, the possible mass, to ensure team members know about this. The patient is for ERCP plan for tomorrow. Job#: [id number]
[2018-06-01] MEDS: VANCOMYCIN 1GM/NS 250 ML 250 ML IV SCH (20:36)
[2018-06-02] VITALS (9 sets, daily range): BP systolic 102–125; BP diastolic 51–59
[2018-06-02] MEDS: NYSTATIN SUSPENSION 5 ML UDC PO SCH ×3 (01:44→19:17)
[2018-06-02 04:06] LABS: BASOPHILS # (AUTO) 0.1 (0.0-0.1); BASOPHILS % 0.7 % (0.0-1.0); EOSINOPHILS # (AUTO) 0.1 (0.0-0.4); EOSINOPHILS % 0.3 % (0.0-6.0); HEMATOCRIT 25.8 % (34.2-44.1); HEMOGLOBIN 8.7 g/dL (12.0-16.0); LYMPHOCYTES # (AUTO) 0.7 (1.0-3.2); LYMPHOCYTES % 3.9 % (18.0-39.1); MEAN CORPUSCULAR HEMOGLOBIN 30.3 pg (28-32); MEAN CORPUSCULAR HGB CONC 33.7 g/dL (31-35); MEAN CORPUSCULAR VOLUME 89.9 fL (81-99); MONOCYTES # (AUTO) 0.9 (0.2-0.8); MONOCYTES % 4.9 % (4.4-11.3); NEUTROPHILS % 88.7 % (38.7-80.0); PLATELET COUNT 243 x10e3/uL (140-360); RED BLOOD COUNT 2.87 x10e6/uL (3.6-5.1); RED CELL DISTRIBUTION WIDTH 15.8 % (11.7-14.4)
[2018-06-02 04:22] LABS: ANION GAP 13.7 mmol/L (8-16); BLOOD UREA NITROGEN 27 mg/dL (7-26); BUN/CREATININE RATIO 44 (6-25); CALCIUM 8.3 mg/dL (8.4-10.2); CARBON DIOXIDE 18 mmol/L (22-29); CHLORIDE 114 mmol/L (98-107); CREATININE, SERUM 0.62 mg/dL (0.57-1.11); EST GLOMERULAR FILTRATION RATE > 60 ML/MIN (60-); GLUCOSE 67 mg/dL (74-118); MAGNESIUM 1.2 MG/DL (1.3-2.1); POTASSIUM 3.7 mmol/L (3.5-5.1); SODIUM 142 mmol/L (136-145)
[2018-06-02 04:45] LABS: FERRITIN 225.7 ng/mL (4.63-204.00)
[2018-06-02 04:58] LABS: FOLATE 10.2 ng/mL (7.0-15.4)
[2018-06-02] MEDS: PIPER-TAZ 3.375 GM 50 ML IV SCH ×3 (05:01→21:45)
[2018-06-02 05:53] LABS: ANISOCYTOSIS SLIGHT; BAND NEUTROPHILS % (MANUAL) 7 %; LYMPHOCYTES % (MANUAL) 6 % (19-48); MONOCYTES % (MANUAL) 5 % (3.4-9.0); NEUTROPHILS % (MANUAL) 82 % (40-74)
[2018-06-02 05:54] LABS: PLATELET ESTIMATE ADEQUATE; PLATELET MORPHOLOGY COMMENT NORMAL; RBC MORPHOLOGY COMMENT NORMAL; TOXIC GRANULATION SLIGHT
[2018-06-02] MEDS ORDERED: DIGOXIN INJ 0.25 MG/ML 2 ML AMP IV NR (07:00)
--- NOTE | 2018-06-02 07:26 | Diagnostic Imaging Report ---
Procedure: Right internal jugular central venous catheter placement with ultrasound guidance edge cutting machine operator: Dr. Khushbu Pedroza Pre-operative diagnosis: Requiring central venous access for pressors Post-operative diagnosis: Status post central venous access for pressors Conscious Sedation: None The patient's heart rate and pulse oximetry were continuously monitored by the ICU nurse. Additional Medications: Lidocaine 1% for local anesthesia Fluoroscopy time: 0 Dose-area Product: 0 mGycm2. Frontal Air Kerma: 0 Contrast used: 0 Estimated blood loss: Minimal Specimens: None Implants: 7 Norwegian 16 cm triple-lumen central venous catheter DISCUSSION: Informed consent was obtained from the patient and documented in the medical record after discussion of risks and benefits. The patient was placed in the supine position. Preliminary sonographic evaluation of the right neck confirmed a patent and compressible right internal jugular vein. The neck was then prepped and draped in a standard sterile fashion. 1% lidocaine was infiltrated into the skin and subcutaneous tissues for local anesthesia. Then under continuous sonographic guidance an 18-gauge singlewall needle was advanced into the right internal jugular vein. A permanent sonographic image was stored in the medical record. A 0.0 3 5-in. wire was advanced centrally to a depth of approximately 25 cm with continuous cardiac rhythm monitoring. The needle was removed over the wire and the tract was dilated. Then, a 7 Norwegian, 16 cm triple-lumen central venous catheter was advanced over the wire to full depth. The wire was then removed. Each lumen was tested and showed adequate bidirectional flow. The catheter was secured to the skin with Monocryl, flushed with sterile saline, and covered by a sterile dressing. The patient tolerated the procedure well without immediate duplication. FINDINGS: Patent right internal jugular vein. IMPRESSION: Placement of a 7 Norwegian 16 cm triple-lumen central venous catheter by a right internal jugular approach under sonographic guidance. A postprocedure chest radiograph will be obtained to confirm line positioning prior to use. Signed by: Dr. Khushbu Pedroza MD on 06/02/2018 7:23 AM
[2018-06-02] MEDS ORDERED: FUROSEMIDE INJ 10 MG/ML 4 ML VIAL IV NR (07:45)
[2018-06-02] MEDS: FERROUS SULFATE 325 MG TAB PO SCH ×2 (08:00→17:56)
[2018-06-02] MEDS: OYST-CAL-D 500MG TABLET PO SCH ×2 (09:00→17:56)
[2018-06-02] MEDS: ASCORBIC ACID 500 MG TAB PO SCH ×2 (09:00→17:56)
[2018-06-02] MEDS: MAGNESIUM OXIDE 400 MG TAB PO SCH ×2 (09:00→17:56)
[2018-06-02] MEDS: ENOXAPARIN SOD INJ 40 MG/0.4 ML SYR SC SCH (09:15)
[2018-06-02] MEDS: PANTOPRAZOLE 40 MG 10ML VIAL IV SCH (09:25)
[2018-06-02] MEDS: ACETAMINOPHEN 325 MG TAB PO PRN (15:15)
[2018-06-02] MEDS: FLUCONAZOLE 400MG/200ML BAG 200 ML IV SCH (17:40)
[2018-06-02] MEDS: VANCOMYCIN 1GM/NS 250 ML 250 ML IV SCH (20:37)
[2018-06-02] MEDS: ACETAMINOPHEN/CODEINE 300MG - 30MG TAB PO PRN (20:37)
--- NOTE | 2018-06-02 23:48 | Progress Note ---
DATE: June 02, 2018 PULMONARY MEDICINE PROGRESS NOTE SUBJECTIVE: Ms. Lagunas was seen and examined at bedside. She has some confusion. Lactated Ringer's 90 mL per hour, 92% oxygen saturation, 2 L per minute by nasal cannula. 2.6 L in, 0.9 L out. Patient is not in any respiratory distress despite the positive fluid balance. REVIEW OF SYSTEMS: Cannot get reliably, she is altered. OBJECTIVE VITAL SIGNS: Afebrile, vital signs noted per electronic record. GENERAL: No acute distress, alert and calm, but not oriented. HEENT: Normocephalic, atraumatic. NECK: Supple. Throat midline. LUNGS: Bilateral air entry, a few rhonchi, a few crackles. CARDIOVASCULAR: S1, S2. No murmurs, rubs or gallops. ABDOMEN: Soft, nontender. EXTREMITIES: No clubbing, no cyanosis, no edema. INTEGUMENT: No rash or purpura. LABS: 19 white count, 27 BUN, 0.6 creatinine, magnesium 1.2. IMPRESSIONS AND PLAN 1. Gangrenous cholecystitis. 2. Postoperative state, status post gallbladder resection. 3. Suspicion for choledocholithiasis, further assess. 4. Hypomagnesemia. 5. Weakness. 6. Encephalopathy, toxic metabolic. 7. Mild fluid overload. PLAN: At this time, will continue current treatment. Repeat chest x-ray and labs in the morning. If she does good after ERCP, will consider going down on IV fluids and initiating further diuresis. Patient n.p.o. and diet will be per surgeon. Continue antibiotics. Follow along closely. She is on DVT prophylaxis. Job#: [id number] CQ
[2018-06-03] VITALS (8 sets, daily range): BP systolic 107–130; BP diastolic 53–57
--- NOTE | 2018-06-03 00:42 | Progress Note ---
DATE: June 02, 2018 SUBJECTIVE: Patient reports no abdominal pain. She would like to eat. REVIEW OF SYSTEMS GENERAL: No fever or chills. RESPIRATORY: No cough or expectoration. CVS: No chest pain, palpitations. MEDICATIONS: Reviewed DEC. She is on intravenous Zosyn as well as vancomycin along with her other medications. PHYSICAL EXAMINATION VITAL SIGNS: Temperature 97.3, pulse 107, respirations 20, blood pressure 105/51, oxygen saturation 92% on room air. GENERAL: Not in any acute distress. Oral mucosa is moist. Anicteric sclerae. CVS: S1, S2 regular. LUNGS: Bilaterally grossly clear. ABDOMEN: Soft, mild right upper quadrant tenderness on deep palpation without rebound rigidity or guarding, MINOR draining bile. EXTREMITIES: Warm. No leg edema. LABS: White count has gone up to 19.17, hemoglobin 8.7, hematocrit 25.8, platelet count 243,000. Sodium 142, potassium 3.7, chloride 114, bicarb 18, BUN 27, creatinine 0.62. MRCP done on 05/29/2018 showed 1. Nonspecific fluid in upper abdomen, differential between the bile and ascites/postoperative fluid. 2. Dilated small bowel loops within the visualized upper abdomen. Findings may reflect areas of partial small-bowel obstruction. 3. Enhancing right renal mass concerning for renal cell carcinoma. 4. Moderate pleural effusion. IMPRESSION: Status post cholecystectomy with postoperative bile leak and right renal mass concerning for renal cell carcinoma. PLAN: NPO past midnight. ERCP tomorrow for bile duct stenting to seal off the bile leak. In the interim, continue present medical management. Further evaluation and workup for renal cell mass as per primary team. Job#: [id number] CQ
[2018-06-03] MEDS ORDERED: SODIUM CHLORIDE 0.9% 50ML 50 ML ONE (00:48)
[2018-06-03] MEDS ORDERED: IOPAMIDOL 370 MG/ML 200 ML INFUS..BTL INJ ONE (00:49)
[2018-06-03] MEDS: NYSTATIN SUSPENSION 5 ML UDC PO SCH ×4 (00:50→16:19)
--- NOTE | 2018-06-03 01:01 | Diagnostic Imaging Report ---
EXAM: CT Abdomen and Pelvis WITH contrast INDICATION: Pelvic abscess. COMPARISON: None. TECHNIQUE: Abdomen and pelvis were scanned utilizing a multidetector helical scanner from the lung base to the pubic symphysis after administration of IV contrast. Coronal and sagittal reformations were obtained. Routine protocol was performed. Scan was performed when during portal venous phase. IV CONTRAST: 100 mL of Isovue-370 ORAL CONTRAST: Water RADIATION DOSE: Total DLP: 275.69 mGy*cm Estimated effective dose: (DLP x 0.015 x size factor) mSv COMPLICATIONS: None FINDINGS: LINES and TUBES: Right upper quadrant subhepatic drain is present. Fernandes catheter decompresses the urinary bladder LOWER THORAX: Large bilateral pleural effusions and passive atelectasis HEPATOBILIARY: No focal hepatic lesions. There is intra- and extra- hepatic biliary dilation likely post cholecystectomy reservoir effect. GALLBLADDER: There are cholecystectomy clips. No wall thickening. SPLEEN: No splenomegaly. PANCREAS: No focal masses or ductal dilatation. ADRENALS: No adrenal nodules KIDNEYS/URETERS: Kidneys enhance symmetrically. No hydronephrosis. No cystic or solid mass lesions. No stones. GI TRACT: There is distention of the stomach duodenum and jejunum with fluid and air. There is decompression of the ileum and colon without transition point. Appendix is normal. PELVIC ORGANS/BLADDER: There are postop changes of hysterectomy and bilateral oophorectomies. LYMPH NODES: No lymphadenopathy. VESSELS: There is severe atherosclerotic disease in the aorta and major arterial branches. PERITONEUM / RETROPERITONEUM: There is moderate of amount of free fluid in the abdomen. BONES: There are degenerative changes in the lumbar spine. SOFT TISSUES: There is diffuse anarsarca. IMPRESSION: 1. Findings are compatible with ileus at the level of the jejunum without evidence of mechanical obstruction. 2. 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 3. Moderate amount of ascites, bilateral pleural effusions and anasarca 4. No evidence of pelvic abscess Signed by: Dr. Ivan Solis M.D. on 06/03/2018 12:57 AM
[2018-06-03] MEDS: MORPHINE SULFATE 2 MG/ML SYR IV PRN (02:07)
[2018-06-03 04:45] LABS: BASOPHILS # (AUTO) 0.1 (0.0-0.1); BASOPHILS % 0.3 % (0.0-1.0); EOSINOPHILS # (AUTO) 0.1 (0.0-0.4); EOSINOPHILS % 0.4 % (0.0-6.0); HEMATOCRIT 26.1 % (34.2-44.1); HEMOGLOBIN 8.6 g/dL (12.0-16.0); LYMPHOCYTES # (AUTO) 0.7 (1.0-3.2); LYMPHOCYTES % 4.1 % (18.0-39.1); MEAN CORPUSCULAR HEMOGLOBIN 29.9 pg (28-32); MEAN CORPUSCULAR VOLUME 90.6 fL (81-99); MONOCYTES % 5.3 % (4.4-11.3); NEUTROPHILS # (AUTO) 15.8 (2.1-6.9); NEUTROPHILS % 88.4 % (38.7-80.0); PLATELET COUNT 272 x10e3/uL (140-360); RED BLOOD COUNT 2.88 x10e6/uL (3.6-5.1); RED CELL DISTRIBUTION WIDTH 15.8 % (11.7-14.4)
[2018-06-03 05:11] LABS: ALANINE AMINOTRANSFERASE 15 IU/L (0-55); ALBUMIN 1.3 g/dL (3.5-5.0); ALKALINE PHOSPHATASE 72 IU/L (40-150); ANION GAP 12.6 mmol/L (8-16); BILIRUBIN,DIRECT 0.2 mg/dL (0.0-0.5); BLOOD UREA NITROGEN 21 mg/dL (7-26); BUN/CREATININE RATIO 35 (6-25); CALCIUM 8.3 mg/dL (8.4-10.2); CARBON DIOXIDE 20 mmol/L (22-29); CHLORIDE 111 mmol/L (98-107); EST GLOMERULAR FILTRATION RATE > 60 ML/MIN (60-); GLUCOSE 77 mg/dL (74-118); MAGNESIUM 1.2 MG/DL (1.3-2.1); POTASSIUM 3.6 mmol/L (3.5-5.1); SODIUM 140 mmol/L (136-145)
[2018-06-03] MEDS ORDERED: MAGNESIUM SULFATE 2GM/50ML 50 ML IV ONE (07:45)
[2018-06-03] MEDS ORDERED: FUROSEMIDE INJ 10 MG/ML 4 ML VIAL IV NR (07:45)
[2018-06-03] MEDS ORDERED: DIGOXIN INJ 0.25 MG/ML 2 ML AMP IV NR (08:00)
[2018-06-03] MEDS: FERROUS SULFATE 325 MG TAB PO SCH ×2 (08:00→16:16)
[2018-06-03] MEDS: PANTOPRAZOLE 40 MG 10ML VIAL IV SCH (08:41)
[2018-06-03] MEDS: OYST-CAL-D 500MG TABLET PO SCH ×2 (09:00→16:16)
[2018-06-03] MEDS: POLYETHYLENE GLYCOL 3350 17 GM PACK PO SCH ×2 (09:00→16:16)
[2018-06-03] MEDS: MAGNESIUM OXIDE 400 MG TAB PO SCH ×2 (09:00→16:16)
[2018-06-03] MEDS: DOCUSATE SODIUM 100 MG CAP PO SCH ×2 (09:00→16:16)
[2018-06-03] MEDS: ASCORBIC ACID 500 MG TAB PO SCH ×2 (09:00→16:16)
[2018-06-03] MEDS ORDERED: IOPAMIDOL 300MG/ML 50ML INFUS..BTL IV ONE (10:59)
[2018-06-03] MEDS ORDERED: PROPOFOL IV EMULSION 10 MG/ML 20 ML VIAL ONE (13:00)
[2018-06-03] MEDS ORDERED: LIDOCAINE HCL 2% LOCAL INJ 5 ML SDV VIAL INJ ONE (13:00)
[2018-06-03] MEDS ORDERED: SEVOFLURANE INHAL SOLN 250 ML PEN BTL ONE (13:00)
[2018-06-03] MEDS ORDERED: PHENYLEPHRINE HCL 1% 10 MG/ML VIAL ONE (13:00)
[2018-06-03] MEDS: ALBUTEROL/IPRATROPIUM 3 ML NEB NEB SCH ×2 (13:00→19:40)
[2018-06-03] MEDS ORDERED: EPHEDRINE SULFATE INJ 50 MG/10 ML SYR ONE (13:00)
[2018-06-03] MEDS ORDERED: SUCCINYLCHOLINE 200 MG/10 ML SYR ONE (13:00)
[2018-06-03] MEDS ORDERED: METOPROLOL TARTRATE INJ 1 MG/ML VIAL ONE (13:00)
[2018-06-03] MEDS ORDERED: ESMOLOL HCL 100MG/10ML 10 MG/ML VIAL ONE (13:00)
--- NOTE | 2018-06-03 13:46 | Progress Note ---
DATE: June 03, 2018 PULMONARY MEDICINE PROGRESS NOTE SUBJECTIVE: Ms. Lagunas was seen and examined at bedside. Patient without any bowel movements yet. She did take a clear liquid diet yesterday, which she partially tolerated. Fernandes in place. CT of the abdomen and pelvis showed an ileus as well as some moderate to large pleural effusions. REVIEW OF SYSTEMS: Cannot get reliably as she is partially confused. OBJECTIVE VITAL SIGNS: Afebrile, vital signs noted per electronic record. GENERAL: No acute distress, alert and calm. HEENT: Normocephalic, atraumatic. NECK: Supple. Throat midline. LUNGS: Bilateral air entry. Decreased breath sounds at the bases. CARDIOVASCULAR: S1, S2. No murmurs, rubs or gallops. ABDOMEN: Soft, nontender. EXTREMITIES: No clubbing, no cyanosis. There is small edema. INTEGUMENT: No rash. No purpura. LABS: Potassium 2.6, 21 BUN, creatinine 0.6, 18 white count, 2 hematocrit, 272 platelets. IMPRESSION AND PLAN 1. Acute gangrenous cholecystitis. 2. Suspected common bile duct obstruction due to residual postoperative bile leak. 3. History of right renal mass, previously known to the patient. 4. Pleural effusions. 5. Weakness. 6. Encephalopathy, toxic metabolic and underlying early dementia. PLAN: As the patient is better, if she does good after ERCP today, will take down the fluids. Furthermore, will consider getting more diuresis. High chance if the patient gets better we will be able to diurese these effusions out; but if time becomes an issue, we may consider thoracentesis. Follow up after ERCP today. The patient will continue antibiotics at this time as well as therapy for movement and mobilization. Job#: [id number]
[2018-06-03] MEDS ORDERED: INDOMETHACIN 50 MG SUPP.RECT RC ONE ×2 (13:54→13:56)
[2018-06-03] MEDS ORDERED: FENTANYL CITRATE/PF 100MCG/2 ML INJ ONE (14:02)
[2018-06-03] MEDS ORDERED: MIDAZOLAM HCL 2 MG/2 ML VIAL ONE (14:02)
--- NOTE | 2018-06-03 14:59 | Progress Note ---
DATE: INFECTIOUS DISEASE PROGRESS NOTE SUBJECTIVE: Ms. Lagunas underwent a procedure today. Patient discussed with GI. The patient is currently comfortable status post procedure. PHYSICAL EXAMINATION GENERAL: She is currently alert, does not seem to be in acute distress. VITAL SIGNS: Stable. Currently afebrile. HEENT: She does not appear icteric. NECK: Supple. CHEST: Clear. HEART: S1 and S2. No S3 or S4, no murmur. ABDOMEN: Soft. Bowel sounds present. No tenderness. EXTREMITIES: No edema. IMPRESSION 1. Sepsis, peritonitis, status post cholecystectomy, status post bile leak. 2. Renal cell mass, concerned about malignancy. 3. Status post cholecystectomy for acute gangrenous cholecystitis. Her blood culture remains negative. Her white count today is 17.86, hemoglobin 8.6, hematocrit 26, her platelet 272. Sodium 140, potassium 3.6, creatinine of 0.69. She is currently on Zosyn and vancomycin, continue with the same, check trough. Continue supportive care. Will follow. Job#: [id number] EV
[2018-06-03] MEDS ORDERED: SODIUM CHLORIDE 0.9% 250ML 250 ML ONE (16:47)
[2018-06-03] MEDS: ENOXAPARIN SOD INJ 40 MG/0.4 ML SYR SC SCH (17:00)
[2018-06-03] MEDS: SODIUM CHLORIDE 0.9% 250ML IRRIG IR SCH ×3 (17:00→23:45)
[2018-06-03] MEDS: FLUCONAZOLE 400MG/200ML BAG 200 ML IV SCH (19:58)
[2018-06-03] MEDS: SODIUM CHLORIDE 0.9% 1000ML 1,000 ML IV SCH ×2 (21:33→22:00)
[2018-06-03] MEDS: VANCOMYCIN 1GM/NS 250 ML 250 ML IV SCH (21:33)
[2018-06-04] MEDS: SODIUM CHLORIDE 0.9% 250ML IRRIG IR SCH ×3 (03:41→09:30)
[2018-06-04 04:00] VITALS: BP 136/58
[2018-06-04 04:52] LABS: BASOPHILS # (AUTO) 0.1 (0.0-0.1); BASOPHILS % 0.6 % (0.0-1.0); EOSINOPHILS # (AUTO) 0.1 (0.0-0.4); EOSINOPHILS % 0.4 % (0.0-6.0); HEMATOCRIT 28.2 % (34.2-44.1); HEMOGLOBIN 9.3 g/dL (12.0-16.0); LYMPHOCYTES # (AUTO) 0.6 (1.0-3.2); LYMPHOCYTES % 4.4 % (18.0-39.1); MEAN CORPUSCULAR HEMOGLOBIN 29.3 pg (28-32); MONOCYTES # (AUTO) 0.8 (0.2-0.8); MONOCYTES % 5.4 % (4.4-11.3); NEUTROPHILS # (AUTO) 12.4 (2.1-6.9); NEUTROPHILS % 87.8 % (38.7-80.0); PLATELET COUNT 271 x10e3/uL (140-360); RED BLOOD COUNT 3.17 x10e6/uL (3.6-5.1); RED CELL DISTRIBUTION WIDTH 16.7 % (11.7-14.4)
[2018-06-04] MEDS: NYSTATIN SUSPENSION 5 ML UDC PO SCH ×4 (05:21→17:34)
[2018-06-04 05:22] LABS: ALANINE AMINOTRANSFERASE 19 IU/L (0-55); ALBUMIN 1.3 g/dL (3.5-5.0); ALBUMIN/GLOBULIN RATIO 0.4 (0.8-2.0); ALKALINE PHOSPHATASE 85 IU/L (40-150); ANION GAP 16.4 mmol/L (8-16); BLOOD UREA NITROGEN 19 mg/dL (7-26); BUN/CREATININE RATIO 31 (6-25); CALCIUM 8.1 mg/dL (8.4-10.2); CARBON DIOXIDE 18 mmol/L (22-29); CHLORIDE 117 mmol/L (98-107); CREATININE, SERUM 0.62 mg/dL (0.57-1.11); EST GLOMERULAR FILTRATION RATE > 60 ML/MIN (60-); GLUCOSE 72 mg/dL (74-118); MAGNESIUM 1.6 MG/DL (1.3-2.1); PHOSPHORUS 3.2 MG/DL (2.3-4.7); POTASSIUM 3.4 mmol/L (3.5-5.1); SODIUM 148 mmol/L (136-145)
--- NOTE | 2018-06-04 06:21 | Diagnostic Imaging Report ---
EXAMINATION: CHEST SINGLE (PORTABLE) INDICATION: CHF. COMPARISON: 06/01/2018 FINDINGS: TUBES and LINES: Right IJ central line catheter is stable. NG tube is in good position. LUNGS: Lungs are not well inflated. There are bibasilar atelectasis. There is no evidence of pneumonia or pulmonary edema. PLEURA: Bilateral pleural effusions. HEART AND MEDIASTINUM: The cardiomediastinal silhouette is unremarkable. There are atherosclerotic calcifications within the aorta. BONES AND SOFT TISSUES: No acute osseous lesion. Soft tissues are unremarkable. UPPER ABDOMEN: No free air under the diaphragm. IMPRESSION: Overall stable bilateral pleural effusions and atelectasis No evidence of interstitial edema Signed by: Dr. Ivan Solis M.D. on 06/04/2018 6:18 AM
[2018-06-04] MEDS: ALBUTEROL/IPRATROPIUM 3 ML NEB NEB SCH ×4 (07:00→19:45)
[2018-06-04 07:36] LABS: ANISOCYTOSIS SLIGHT; BAND NEUTROPHILS % (MANUAL) 9 %; LYMPHOCYTES % (MANUAL) 7 % (19-48); METAMYELOCYTES % (MANUAL) 1 % (0-0); MONOCYTES % (MANUAL) 6 % (3.4-9.0); NEUTROPHILS % (MANUAL) 76 % (40-74); PLATELET ESTIMATE ADEQUATE; POIKILOCYTOSIS SLIGHT; RBC MORPHOLOGY COMMENT NORMAL
[2018-06-04 07:37] LABS: HYPOCHROMASIA SLIG; PLATELET MORPHOLOGY COMMENT NORMAL
[2018-06-04] MEDS: MAGNESIUM OXIDE 400 MG TAB PO SCH ×2 (07:48→17:34)
[2018-06-04] MEDS: OYST-CAL-D 500MG TABLET PO SCH ×2 (07:48→17:34)
[2018-06-04] MEDS: POLYETHYLENE GLYCOL 3350 17 GM PACK PO SCH ×2 (07:48→17:00)
[2018-06-04] MEDS: DOCUSATE SODIUM 100 MG CAP PO SCH ×2 (07:48→17:34)
[2018-06-04] MEDS: FERROUS SULFATE 325 MG TAB PO SCH ×2 (07:48→17:34)
[2018-06-04] MEDS: ATENOLOL 100 MG TAB PO SCH (07:49)
[2018-06-04] MEDS: ASCORBIC ACID 500 MG TAB PO SCH ×2 (07:50→17:34)
[2018-06-04] MEDS ORDERED: METOPROLOL TARTRATE INJ 1 MG/ML VIAL IV PRN (08:15)
[2018-06-04] MEDS ORDERED: DEXTROSE 5%/0.45% SOD CHL 1,000 ML IV ONE (08:30)
[2018-06-04] MEDS ORDERED: POTASSIUM CHLORIDE 20MEQ/100ML 100 ML IV ONE (08:30)
[2018-06-04 08:54] VITALS: BP 127/66
[2018-06-04] MEDS: DIGOXIN 0.125 MG TAB PO SCH (09:28)
[2018-06-04] MEDS: PANTOPRAZOLE 40 MG 10ML VIAL IV SCH (09:28)
--- NOTE | 2018-06-04 11:43 | Diagnostic Imaging Report ---
PROCEDURE:ERCP TO BE READ TECHNIQUE:ERCP performed by the GI service. No radiologist was present for the procedure. INDICATION:Bile duct stent placement COMPARISON:None. FINDINGS: Multiple images were provided from ERCP procedure. Opacification of the common bile duct demonstrates mild intrahepatic and extrahepatic biliary dilatation. There are small filling defects within the common bile duct which could represent stones or artifact related to bubbles. Final images show placement of a common bile duct stent. CONCLUSION: As above Dictated by: Major Dhillon M.D. on 06/04/2018 at 11:49 Electronically approved by: Major Dhillon M.D. on 06/04/2018 at 11:49
[2018-06-04 12:31] VITALS: BP 123/58
--- NOTE | 2018-06-04 13:18 | Progress Note ---
DATE: June 04, 2018 PULMONARY MEDICINE PROGRESS NOTE SUBJECTIVE: Ms. Lagunas was seen and examined at bedside. She continues to have steady progress. She remains intermittently mildly confused. Clear liquid diet was taken yesterday and was tolerated. The patient had NG tube that was removed today. She remains on IV fluids at 50 mL per hour. She walked 4 feet today, but she was very exhausted and could not do much more. REVIEW OF SYSTEMS: No bleeding. No rash. OBJECTIVE VITAL SIGNS: Afebrile, vital signs noted per electronic record. GENERAL: No acute distress, alert and calm in bed. HEENT: Normocephalic, atraumatic. NECK: Supple. Throat midline. LUNGS: Bilateral air entry. Decreased breath sounds at the bases. CARDIOVASCULAR: S1, S2. No murmurs, rubs or gallops. ABDOMEN: Soft, postoperative. EXTREMITIES: No clubbing, no cyanosis. No edema. INTEGUMENT: No rash. No purpura. LABS: White count 14, 28 hematocrit 271 platelets, 148 sodium, 3.4 potassium. Globulin is 1.3. IMPRESSION AND PLAN 1. Gangrenous cholecystitis. 2. Choledocholithiasis, status post endoscopic retrograde cholangiopancreatography stenting. 3. Pleural effusion, moderate to large. 4. Weakness. 5. Encephalopathy, multifactorial. 6. Back pain. 7. Diabetes. 8. Early dementia. 9. Hypertension. 10. Septic shock, resolved. PLAN: Continue antibiotics. Fluids have been modified. Will give 1 dose of diuretic today and some potassium supplement to go with that. Continue aggressive PT and OT. SNF evaluation is requested. Follow up closely. Escalate diet as per surgeon. Job#: [id number]
[2018-06-04] MEDS ORDERED: FUROSEMIDE INJ 10 MG/ML 2 ML VIAL IV NR (13:30)
[2018-06-04] MEDS: PIPER-TAZ 3.375 GM 50 ML IV SCH ×2 (14:02→21:10)
[2018-06-04] MEDS ORDERED: CHLORASEPTIC SPRAY 177 ML BTL MM PRN (15:15)
[2018-06-04 16:04] VITALS: BP 137/60
[2018-06-04] MEDS: FLUCONAZOLE 400MG/200ML BAG 200 ML IV SCH (17:34)
[2018-06-04 20:00] VITALS: BP 150/67
[2018-06-04 20:25] VITALS: BP 150/67
[2018-06-04] MEDS ORDERED: METOPROLOL TARTRATE INJ 1 MG/ML VIAL IV ONE (21:15)
[2018-06-04] MEDS: VANCOMYCIN 1GM/NS 250 ML 250 ML IV SCH (21:45)
--- NOTE | 2018-06-04 22:04 | Progress Note ---
DATE: June 04, 2018 GI PROGRESS REPORT SUBJECTIVE: Patient reports no abdominal pain. The output in the MINOR drain has significantly decreased and it is getting clear. Reports no abdominal pain. No nausea, vomiting. REVIEW OF SYSTEMS: GENERAL: No fever or chills. CVS: No chest pain, palpitation. RESPIRATORY: No cough or expectoration. MEDICATIONS: Inpatient medication list reviewed, as per DEC. PHYSICAL EXAMINATION: VITAL SIGNS: Temperature 97.2, pulse 111 to 119, respiration 18 to 19, blood pressure 150/67, oxygen saturation 97% on 2 liters of nasal cannula. GENERAL: Not in any acute distress. HEENT: Oral mucosa is moist. Anicteric sclerae. CVS: S1 and S2 regular. LUNGS: Bilaterally grossly clear. ABDOMEN: Soft, nondistended. No palpable right upper quadrant tenderness. MINOR drain with minimal clear serous fluid, hardly any bile. Otherwise, abdomen is soft, nontender. Bowel sounds present. EXTREMITIES: Warm. No leg edema. LABS: WBC has come down to 14.13 from 17.86, hemoglobin 9.3, hematocrit 28.2, platelet count 271,000. Sodium 148, potassium 3.4, chloride 117, bicarb 18, BUN 19, creatinine 0.62, glucose 72. Liver enzymes normal. IMPRESSION: Status post cholecystectomy with bile leak, status post endoscopic retrograde cholangiopancreatography and sphincterotomy with common bile duct stent placement. PLAN: From GI standpoint, it seems like output in the MINOR drain has significantly decreased. It is clear there is hardly any bile in the MINOR drain. Continue present medical management as per primary team. Patient needs a repeat ERCP with stent removal within 6 weeks. I have told the patient's son to schedule appointment to see me in the office within 2 weeks after discharge. Job#: [id number]
[2018-06-04] MEDS: MORPHINE SULFATE 2 MG/ML SYR IV PRN (22:14)
[2018-06-05] VITALS (8 sets, daily range): BP systolic 127–151; BP diastolic 58–96
[2018-06-05] MEDS: NYSTATIN SUSPENSION 5 ML UDC PO SCH ×4 (00:43→17:55)
[2018-06-05] MEDS: ALBUTEROL/IPRATROPIUM 3 ML NEB NEB SCH ×4 (02:00→19:07)
[2018-06-05] MEDS: PIPER-TAZ 3.375 GM 50 ML IV SCH ×3 (05:12→21:27)
[2018-06-05 05:22] LABS: BASOPHILS # (AUTO) 0.1 (0.0-0.1); BASOPHILS % 0.7 % (0.0-1.0); EOSINOPHILS % 0.3 % (0.0-6.0); HEMATOCRIT 28.3 % (34.2-44.1); HEMOGLOBIN 9.4 g/dL (12.0-16.0); LYMPHOCYTES # (AUTO) 0.6 (1.0-3.2); LYMPHOCYTES % 4.4 % (18.0-39.1); MEAN CORPUSCULAR HEMOGLOBIN 29.4 pg (28-32); MEAN CORPUSCULAR HGB CONC 33.2 g/dL (31-35); MEAN CORPUSCULAR VOLUME 88.4 fL (81-99); MONOCYTES # (AUTO) 0.8 (0.2-0.8); MONOCYTES % 6.7 % (4.4-11.3); NEUTROPHILS % 86.9 % (38.7-80.0); PLATELET COUNT 317 x10e3/uL (140-360); RED CELL DISTRIBUTION WIDTH 16.8 % (11.7-14.4)
[2018-06-05 05:43] LABS: ANION GAP 14.2 mmol/L (8-16); BLOOD UREA NITROGEN 13 mg/dL (7-26); BUN/CREATININE RATIO 22 (6-25); CARBON DIOXIDE 22 mmol/L (22-29); CHLORIDE 116 mmol/L (98-107); CREATININE, SERUM 0.58 mg/dL (0.57-1.11); EST GLOMERULAR FILTRATION RATE > 60 ML/MIN (60-); GLUCOSE 121 mg/dL (74-118); MAGNESIUM 1.3 MG/DL (1.3-2.1); POTASSIUM 3.2 mmol/L (3.5-5.1); SODIUM 149 mmol/L (136-145)
[2018-06-05 06:32] LABS: BAND NEUTROPHILS % (MANUAL) 6 %; LYMPHOCYTES % (MANUAL) 2 % (19-48); MONOCYTES % (MANUAL) 9 % (3.4-9.0); NEUTROPHILS % (MANUAL) 83 % (40-74)
[2018-06-05 06:33] LABS: PLATELET ESTIMATE ADEQUATE; PLATELET MORPHOLOGY COMMENT NORMAL; RBC MORPHOLOGY COMMENT NORMAL
--- NOTE | 2018-06-05 06:50 | Diagnostic Imaging Report ---
EXAMINATION: CHEST SINGLE (PORTABLE) INDICATION: Effusions COMPARISON: 06/01/2018 FINDINGS: TUBES and LINES: Right IJ central line catheter is stable. NG tube has been removed. LUNGS: Lungs are not well inflated. There are bibasilar atelectasis. There is evidence of interstitial edema. PLEURA: Bilateral pleural effusions. HEART AND MEDIASTINUM: The cardiomediastinal silhouette is unremarkable. There are atherosclerotic calcifications within the aorta. BONES AND SOFT TISSUES: No acute osseous lesion. Soft tissues are unremarkable. UPPER ABDOMEN: No free air under the diaphragm. IMPRESSION: 1. Overall stable bilateral pleural effusions and atelectasis 2. Developing interstitial edema. Signed by: Dr. Ivan Solis M.D. on 06/05/2018 6:46 AM
[2018-06-05] MEDS ORDERED: POTASSIUM CHLORIDE 20 MEQ TAB CR PO ONE (08:00)
[2018-06-05] MEDS ORDERED: DEXTROSE 5%/0.45% SOD CHL 1,000 ML IV SCH (08:45)
[2018-06-05] MEDS ORDERED: CALCIUM GLUCONATE 10% INJ 13.95 MEQ in SODIUM CHLORIDE 0.9% 100 ML 100 ML IV ONE (08:45)
[2018-06-05] MEDS: DOCUSATE SODIUM 100 MG CAP PO SCH ×2 (09:00→15:27)
[2018-06-05] MEDS: POLYETHYLENE GLYCOL 3350 17 GM PACK PO SCH ×2 (09:00→15:27)
[2018-06-05] MEDS: ATENOLOL 100 MG TAB PO SCH (09:06)
[2018-06-05] MEDS: OYST-CAL-D 500MG TABLET PO SCH ×2 (09:06→17:54)
[2018-06-05] MEDS: MAGNESIUM OXIDE 400 MG TAB PO SCH ×2 (09:06→17:54)
[2018-06-05] MEDS: PANTOPRAZOLE 40 MG 10ML VIAL IV SCH (09:06)
[2018-06-05] MEDS: DIGOXIN 0.125 MG TAB PO SCH (09:06)
[2018-06-05] MEDS: FERROUS SULFATE 325 MG TAB PO SCH ×2 (09:06→17:54)
[2018-06-05] MEDS: ASCORBIC ACID 500 MG TAB PO SCH ×2 (09:06→17:54)
[2018-06-05] MEDS ORDERED: POTASSIUM CHLORIDE 20 MEQ TAB CR PO NR ×3 (09:15→16:00)
[2018-06-05] MEDS ORDERED: CALCIUM CHLORIDE 10% IV ONE (09:30)
[2018-06-05] MEDS ORDERED: SODIUM CHLORIDE 0.9% IV ONE (09:30)
[2018-06-05] MEDS: ACETAMINOPHEN 325 MG TAB PO PRN ×2 (09:38→15:53)
[2018-06-05] MEDS ORDERED: CHLOROTHIAZIDE SODIUM 500 MG VIAL IV NR (12:00)
[2018-06-05] MEDS: POTASSIUM CHLORIDE 30 MEQ in DEXTROSE 5% 1,000 ML IV SCH (12:35)
--- NOTE | 2018-06-05 13:31 | Progress Note ---
DATE: June 05, 2018 PULMONARY MEDICINE PROGRESS NOTE SUBJECTIVE: Ms. Lagunas was seen and examined at bedside. She was walking 50 feet with PT today with minimal assist. She use a walker for transport. MINOR in place with 30 mL over 24 hours of output. She ate her clear liquid diet well. She remains on IV fluid at 100 mL per hour. REVIEW OF SYSTEMS: No bleeding. No rash. OBJECTIVE VITAL SIGNS: Afebrile, vital signs noted per electronic record. GENERAL: No acute distress, alert and cooperative. HEENT: Normocephalic, atraumatic. NECK: Supple. Throat midline. LUNGS: Bilateral air entry. Decreased breath sounds at the bases. CARDIOVASCULAR: S1, S2. No murmurs, rubs, or gallops. ABDOMEN: Soft, nontender. EXTREMITIES: No clubbing, no cyanosis. There is 2+ lower extremity edema. INTEGUMENT: No rash. No purpura. LABS: 15 BUN, 0.6 creatinine, 13 white count, 28 hematocrit. IMPRESSION 1. Acute gangrenous cholecystitis. 2. Choledocholithiasis. 3. Postoperative stay, status post cholecystectomy, operative. 4. Postoperative stay, status post endoscopic retrograde cholangiopancreatography. 5. Hypokalemia. At this time, we will give more potassium, give more diuretics. We will change IV fluids or remove some of the salt, continue MINOR drainage monitoring per surgeon and should consider just continuing this when acceptable. PLAN: For future anticoagulation so this can be started when surgery has cleared. For now, continue antibiotics. Job#: [id number] SUB
[2018-06-05] MEDS: CHOLESTYRAMINE 4 GM PACKET PO PRN (15:53)
[2018-06-05] MEDS: FLUCONAZOLE 400MG/200ML BAG 200 ML IV SCH (17:55)
[2018-06-05] MEDS: HYDROCODONE/APAP 5MG-325MG TAB PO PRN (20:12)
[2018-06-05] MEDS: VANCOMYCIN 1GM/NS 250 ML 250 ML IV SCH (20:12)
--- NOTE | 2018-06-05 22:35 | Progress Note ---
DATE: June 05, 2018 GI PROGRESS REPORT SUBJECTIVE: No abdominal pain. No nausea, vomiting. Appetite has slowly improved. REVIEW OF SYSTEMS: GENERAL: No fever or chills. CVS: No chest pain, palpitation. RESPIRATORY: No cough or expectoration. MEDICATIONS, INPATIENT: Reviewed DEC. PHYSICAL EXAMINATION: VITAL SIGNS: Temperature 96.9, pulse 81, respirations 17, blood pressure 130/58, oxygen saturation 97% on 2 liters of nasal cannula. GENERAL: Not in any acute distress, elderly, frail. CVS: S1 and S2 regular. LUNGS: Bilaterally grossly clear. ABDOMEN: Soft, nondistended. No palpable right upper quadrant tenderness. MINOR drain with minimal clear serous fluid, it is no longer bilious. Bowel sounds present. EXTREMITIES: Warm. No leg edema. LABS: WBC has come down to 12.62, hemoglobin 9.4, hematocrit 28.3, MCV 88.4, platelet count 317,000. Sodium 149, potassium 3.2, chloride 116, bicarb 22, BUN 13, creatinine 0.58. IMPRESSION: 1. Status post cholecystectomy with bile leak, status post endoscopic retrograde cholangiopancreatography, and sphincterotomy with common bile duct plastic stent placement. Bile leak seems to have resolved. 2. Sepsis, currently being treated with antibiotic, it seems to have resolved. PLAN: Continue to monitor MINOR drain output. Postop care as per surgery. Outpatient ERCP to remove the stent in 6 weeks. I have given my business card to the patient's daughter. They will schedule appointment to see me within 2 weeks post discharge. Job#: [id number]
[2018-06-06] MEDS: ALBUTEROL/IPRATROPIUM 3 ML NEB NEB SCH ×4 (00:40→19:20)
[2018-06-06] MEDS: MORPHINE SULFATE 2 MG/ML SYR IV PRN (00:45)
[2018-06-06 00:55] VITALS: BP 132/69
[2018-06-06] MEDS: NYSTATIN SUSPENSION 5 ML UDC PO SCH ×5 (01:12→23:47)
[2018-06-06] MEDS: POTASSIUM CHLORIDE 30 MEQ in DEXTROSE 5% 1,000 ML IV SCH (03:35)
[2018-06-06 05:02] LABS: BASOPHILS # (AUTO) 0.1 (0.0-0.1); BASOPHILS % 0.7 % (0.0-1.0); EOSINOPHILS # (AUTO) 0.1 (0.0-0.4); EOSINOPHILS % 1.4 % (0.0-6.0); HEMATOCRIT 27.5 % (34.2-44.1); LYMPHOCYTES # (AUTO) 0.6 (1.0-3.2); MEAN CORPUSCULAR HGB CONC 32.7 g/dL (31-35); MEAN CORPUSCULAR VOLUME 88.7 fL (81-99); MONOCYTES # (AUTO) 0.6 (0.2-0.8); MONOCYTES % 6.2 % (4.4-11.3); NEUTROPHILS # (AUTO) 8.2 (2.1-6.9); NEUTROPHILS % 84.8 % (38.7-80.0); PLATELET COUNT 307 x10e3/uL (140-360); RED CELL DISTRIBUTION WIDTH 16.6 % (11.7-14.4)
[2018-06-06 05:16] VITALS: BP 124/58
[2018-06-06 05:35] LABS: ANION GAP 9.8 mmol/L (8-16); BLOOD UREA NITROGEN 13 mg/dL (7-26); BUN/CREATININE RATIO 24 (6-25); CALCIUM 8.4 mg/dL (8.4-10.2); CARBON DIOXIDE 23 mmol/L (22-29); CHLORIDE 113 mmol/L (98-107); CREATININE, SERUM 0.55 mg/dL (0.57-1.11); EST GLOMERULAR FILTRATION RATE > 60 ML/MIN (60-); GLUCOSE 132 mg/dL (74-118); MAGNESIUM 1.4 MG/DL (1.3-2.1); POTASSIUM 3.8 mmol/L (3.5-5.1); SODIUM 142 mmol/L (136-145)
[2018-06-06 05:49] LABS: ALBUMIN 1.2 g/dL (3.5-5.0); BILIRUBIN,DIRECT 0.2 mg/dL (0.0-0.5)
[2018-06-06] MEDS: PIPER-TAZ 3.375 GM 50 ML IV SCH ×3 (05:56→20:59)
[2018-06-06 07:02] LABS: BAND NEUTROPHILS % (MANUAL) 7 %; EOSINOPHILS % (MANUAL) 2 % (0-7); LYMPHOCYTES % (MANUAL) 8 % (19-48); MONOCYTES % (MANUAL) 8 % (3.4-9.0); NEUTROPHILS % (MANUAL) 75 % (40-74)
[2018-06-06 07:03] LABS: HYPOCHROMASIA SLIGHT; PLATELET ESTIMATE ADEQUATE
[2018-06-06 07:04] LABS: ANISOCYTOSIS SLIGHT; PLATELET MORPHOLOGY COMMENT NORMAL; RBC MORPHOLOGY COMMENT NORMAL
[2018-06-06 08:00] VITALS: BP_SYST 119; BP_SYST 123; BP_DIAS 58
[2018-06-06] MEDS: DOCUSATE SODIUM 100 MG CAP PO SCH ×2 (09:00→17:00)
[2018-06-06] MEDS: POLYETHYLENE GLYCOL 3350 17 GM PACK PO SCH ×2 (09:00→17:00)
[2018-06-06] MEDS: FERROUS SULFATE 325 MG TAB PO SCH ×2 (10:32→18:11)
[2018-06-06] MEDS: PANTOPRAZOLE 40 MG 10ML VIAL IV SCH (10:32)
[2018-06-06] MEDS: DIGOXIN 0.125 MG TAB PO SCH (10:33)
[2018-06-06] MEDS: OYST-CAL-D 500MG TABLET PO SCH ×2 (10:33→18:11)
[2018-06-06] MEDS: ATENOLOL 100 MG TAB PO SCH (10:33)
[2018-06-06] MEDS: CHOLESTYRAMINE 4 GM PACKET PO PRN ×2 (10:33→22:10)
[2018-06-06] MEDS: MAGNESIUM OXIDE 400 MG TAB PO SCH ×2 (10:33→18:11)
[2018-06-06] MEDS: ASCORBIC ACID 500 MG TAB PO SCH ×2 (10:33→18:11)
[2018-06-06] MEDS ORDERED: SPIRONOLACTONE 25 MG TAB PO ONE (12:45)
--- NOTE | 2018-06-06 14:43 | Progress Note ---
DATE: June 06, 2018 PULMONARY MEDICINE PROGRESS NOTE SUBJECTIVE: Ms. Lagunas was seen and examined at bedside. She remains on D5W at 80 mL per hour. One liter per minute by nasal cannula. She is eating about 60% of her full liquid diet. Still has a lot of output from her MINOR drain. She is able to walk today with therapy. REVIEW OF SYSTEMS: No headaches, no double vision. OBJECTIVE VITAL SIGNS: Afebrile, vital signs noted per electronic record. GENERAL: No acute distress, alert and calm. HEENT: Normocephalic, atraumatic. NECK: Supple. Throat midline. LUNGS: Bilateral air entry. Decreased breath sounds at the bases. CARDIOVASCULAR: S1, S2. No murmurs, rubs or gallops. ABDOMEN: Soft, nontender. EXTREMITIES: No clubbing, no cyanosis. There is still 2+ edema in legs. INTEGUMENT: No rash. No purpura. LABORATORY DATA: Sodium 143, potassium 3.8, BUN 13, creatinine 0.6. White count 10, hematocrit 28. IMPRESSION 1. Fluid overload. 2. Pleural effusion, at least moderate. 3. Weakness. 4. Possible early dementia, delirium is present. 5. Acute gangrenous cholecystitis. PLAN: Continue current treatment at this time. We will stop IV fluids. Continue p.o. diet. Give more diuretics and I have started Lasix and given one dose of Aldactone. We will follow along closely. SNF evaluation is made as patient is too sick to go home. Continue antibiotics at this time for the severe sepsis. Job#: [id number]
[2018-06-06 16:00] VITALS: BP 126/93
[2018-06-06] MEDS: FUROSEMIDE INJ 10 MG/ML 2 ML VIAL IV SCH (18:10)
[2018-06-06] MEDS: APIXAB 2.5 MG TABLET PO SCH (18:11)
[2018-06-06 18:29] VITALS: BP 126/93
[2018-06-06 19:46] VITALS: BP 109/53
[2018-06-06] MEDS: HYDROCODONE/APAP 5MG-325MG TAB PO PRN (20:59)
[2018-06-07] VITALS (9 sets, daily range): BP systolic 96–123; BP diastolic 51–59
[2018-06-07] MEDS: ALBUTEROL/IPRATROPIUM 3 ML NEB NEB SCH ×4 (01:02→19:20)
[2018-06-07] MEDS: ACETAMINOPHEN 325 MG TAB PO PRN ×2 (02:48→21:01)
[2018-06-07] MEDS: HYDROCODONE/APAP 5MG-325MG TAB PO PRN ×2 (03:00→18:14)
[2018-06-07] MEDS: PIPER-TAZ 3.375 GM 50 ML IV SCH ×3 (05:07→22:00)
[2018-06-07] MEDS: NYSTATIN SUSPENSION 5 ML UDC PO SCH ×3 (05:07→17:02)
[2018-06-07 05:18] LABS: BASOPHILS # (AUTO) 0.1 (0.0-0.1); EOSINOPHILS # (AUTO) 0.1 (0.0-0.4); EOSINOPHILS % 0.7 % (0.0-6.0); HEMATOCRIT 27.4 % (34.2-44.1); LYMPHOCYTES # (AUTO) 0.7 (1.0-3.2); LYMPHOCYTES % 7.9 % (18.0-39.1); MEAN CORPUSCULAR HEMOGLOBIN 29.2 pg (28-32); MEAN CORPUSCULAR HGB CONC 32.8 g/dL (31-35); MONOCYTES # (AUTO) 0.5 (0.2-0.8); MONOCYTES % 6.4 % (4.4-11.3); NEUTROPHILS % 82.9 % (38.7-80.0); PLATELET COUNT 328 x10e3/uL (140-360); RED BLOOD COUNT 3.08 x10e6/uL (3.6-5.1); RED CELL DISTRIBUTION WIDTH 16.6 % (11.7-14.4)
[2018-06-07 05:34] LABS: BLOOD UREA NITROGEN 14 mg/dL (7-26); BUN/CREATININE RATIO 23 (6-25); CALCIUM 8.4 mg/dL (8.4-10.2); CARBON DIOXIDE 22 mmol/L (22-29); CHLORIDE 107 mmol/L (98-107); CREATININE, SERUM 0.61 mg/dL (0.57-1.11); EST GLOMERULAR FILTRATION RATE > 60 ML/MIN (60-); GLUCOSE 82 mg/dL (74-118); MAGNESIUM 1.5 MG/DL (1.3-2.1); SODIUM 138 mmol/L (136-145)
[2018-06-07 06:54] LABS: BAND NEUTROPHILS % (MANUAL) 9 %; EOSINOPHILS % (MANUAL) 2 % (0-7); LYMPHOCYTES % (MANUAL) 11 % (19-48); METAMYELOCYTES % (MANUAL) 1 % (0-0); MONOCYTES % (MANUAL) 7 % (3.4-9.0); MYELOCYTES % (MANUAL) 1 % (0-0); NEUTROPHILS % (MANUAL) 69 % (40-74); PLATELET ESTIMATE ADEQUATE; PLATELET MORPHOLOGY COMMENT NORMAL; RBC MORPHOLOGY COMMENT NORMAL
--- NOTE | 2018-06-07 06:59 | Diagnostic Imaging Report ---
EXAMINATION: CHEST SINGLE (PORTABLE) INDICATION: CHF. COMPARISON: 06/05/2018 FINDINGS: TUBES and LINES: Right IJ central line catheter in good position. LUNGS: Lungs are not well inflated. There are bibasilar atelectasis. There is perihilar interstitial opacities, consistent with interstitial edema. PLEURA: Small bilateral pleural effusions HEART AND MEDIASTINUM: The cardiomediastinal silhouette is unremarkable. There are atherosclerotic calcifications within the aorta. BONES AND SOFT TISSUES: No acute osseous lesion. Soft tissues are unremarkable. UPPER ABDOMEN: No free air under the diaphragm. IMPRESSION: Findings are compatible with slight improvement in fluid overload and bilateral pleural effusions Signed by: Dr. Ivan Solis M.D. on 06/07/2018 6:56 AM
[2018-06-07] MEDS: PANTOPRAZOLE 40 MG 10ML VIAL IV SCH (08:55)
[2018-06-07] MEDS: DIGOXIN 0.125 MG TAB PO SCH (09:00)
[2018-06-07] MEDS: FUROSEMIDE INJ 10 MG/ML 2 ML VIAL IV SCH ×2 (09:00→17:02)
[2018-06-07] MEDS: ASCORBIC ACID 500 MG TAB PO SCH ×2 (09:00→17:02)
[2018-06-07] MEDS: DOCUSATE SODIUM 100 MG CAP PO SCH ×2 (09:00→16:14)
[2018-06-07] MEDS: FERROUS SULFATE 325 MG TAB PO SCH ×2 (09:00→17:02)
[2018-06-07] MEDS: POLYETHYLENE GLYCOL 3350 17 GM PACK PO SCH ×2 (09:00→16:15)
[2018-06-07] MEDS: APIXAB 2.5 MG TABLET PO SCH ×2 (09:00→17:02)
[2018-06-07] MEDS: MAGNESIUM OXIDE 400 MG TAB PO SCH ×2 (09:00→17:02)
[2018-06-07] MEDS: OYST-CAL-D 500MG TABLET PO SCH ×2 (09:00→17:02)
[2018-06-07] MEDS ORDERED: SODIUM CHLORIDE 0.9% 250ML 250 ML ONE (12:11)
--- NOTE | 2018-06-07 12:59 | Progress Note ---
DATE: DIAGNOSES 1. Bile leak. 2. Diarrhea. SUBJECTIVE: Ms. Lagunas reports less diarrhea. She is feeling better. OBJECTIVE VITAL SIGNS: Blood pressure 140/80, pulse 80, temperature 98. HEART: Regular rate. LUNGS: Clear. ABDOMEN: Soft. ASSESSMENT AND PLAN: The patient with diarrhea. She had a stent placed for a bile leak a week ago. The patient is doing better. Will advance diet to a low residue diet. Will follow the patient closely. Job#: [id number] SD
[2018-06-07] MEDS ORDERED: SPIRONOLACTONE 25 MG TAB PO ONE (15:00)
--- NOTE | 2018-06-07 15:35 | Progress Note ---
DATE: June 07, 2018 PULMONARY MEDICINE PROGRESS NOTE SUBJECTIVE: Mrs. Lagunas was seen and examined at the bedside. She continues to have slow progress. Intermittent confusion is still present. Low normal blood pressure noted. Oxygen saturation 96%. One liter per minute nasal cannula. Times 4 in bowel movements, and 8 recorded by nursing. Chest x-ray shows mild improvement in fluid overload, but still some effusions and overload. REVIEW OF SYSTEMS: No double vision. No headaches. OBJECTIVE VITAL SIGNS: Afebrile. Vital signs noted per electronic record. GENERAL: In no acute distress. Alert and calm. HEENT: Normocephalic and atraumatic. NECK: Supple. Throat midline. LUNGS: Bilateral air entry. Few decreased breath sounds at the bases. CARDIOVASCULAR: S1 and S2. No murmurs, rubs or gallops. ABDOMEN: Soft and nontender. EXTREMITIES: No clubbing. No cyanosis. There is 1-2+ leg edema. INTEGUMENT: No rash. No purpura. LABS: Potassium 4, BUN 14, creatinine 0.6. White count 8.4, hematocrit 27 and platelets 328,000. Albumin is 1.2. IMPRESSION AND PLAN 1. Pleural effusions, moderate to large. 2. Fluid overload. 3. Leg edema. 4. Postoperative pain, status post cholecystectomy and subsequent endoscopic retrograde cholangiopancreatography. 5. Weakness. Continue diuretics. Blood pressure low normal. Lasix noted. However, will give an extra dose of Aldactone today. Continue oxygen. Continue to mobilize the patient and improve nutrition. Will follow along closely. Recheck labs tomorrow. Job#: [id number] IMELDA
[2018-06-07] MEDS: FLUCONAZOLE 400MG/200ML BAG 200 ML IV SCH (16:00)
[2018-06-07] MEDS: ATENOLOL 100 MG TAB PO SCH (17:03)
[2018-06-08] VITALS: BP 112/53
[2018-06-08] MEDS: ONDANSETRON HCL INJ 2 MG/ML VIAL IV PRN (00:57)
[2018-06-08 02:35] LABS: BASOPHILS # (AUTO) 0.1 (0.0-0.1); BASOPHILS % 1.2 % (0.0-1.0); EOSINOPHILS % 0.5 % (0.0-6.0); HEMATOCRIT 27.2 % (34.2-44.1); LYMPHOCYTES # (AUTO) 0.6 (1.0-3.2); LYMPHOCYTES % 7.9 % (18.0-39.1); MEAN CORPUSCULAR HGB CONC 33.1 g/dL (31-35); MEAN CORPUSCULAR VOLUME 87.7 fL (81-99); MONOCYTES # (AUTO) 0.6 (0.2-0.8); NEUTROPHILS # (AUTO) 6.2 (2.1-6.9); PLATELET COUNT 365 x10e3/uL (140-360)
[2018-06-08 02:57] LABS: ANION GAP 14.6 mmol/L (8-16); BLOOD UREA NITROGEN 18 mg/dL (7-26); BUN/CREATININE RATIO 24 (6-25); CALCIUM 8.5 mg/dL (8.4-10.2); CARBON DIOXIDE 23 mmol/L (22-29); CHLORIDE 106 mmol/L (98-107); CREATININE, SERUM 0.74 mg/dL (0.57-1.11); EST GLOMERULAR FILTRATION RATE > 60 ML/MIN (60-); GLUCOSE 70 mg/dL (74-118); MAGNESIUM 1.6 MG/DL (1.3-2.1); POTASSIUM 3.6 mmol/L (3.5-5.1); SODIUM 140 mmol/L (136-145)
[2018-06-08 04:00] VITALS: BP 96/54
[2018-06-08] MEDS: NYSTATIN SUSPENSION 5 ML UDC PO SCH ×4 (05:17→17:16)
[2018-06-08] MEDS: PIPER-TAZ 3.375 GM 50 ML IV SCH ×3 (05:17→22:00)
[2018-06-08] MEDS: ALBUTEROL/IPRATROPIUM 3 ML NEB NEB SCH ×3 (06:40→14:10)
[2018-06-08 08:00] VITALS: BP 90/53
[2018-06-08] MEDS: ATENOLOL 100 MG TAB PO SCH (09:00)
[2018-06-08] MEDS: MAGNESIUM OXIDE 400 MG TAB PO SCH ×2 (10:00→17:15)
[2018-06-08] MEDS: FERROUS SULFATE 325 MG TAB PO SCH ×2 (10:00→17:15)
[2018-06-08] MEDS: PANTOPRAZOLE 40 MG 10ML VIAL IV SCH (10:00)
[2018-06-08] MEDS: ASCORBIC ACID 500 MG TAB PO SCH ×2 (10:00→17:15)
[2018-06-08] MEDS: DIGOXIN 0.125 MG TAB PO SCH (10:00)
[2018-06-08] MEDS: OYST-CAL-D 500MG TABLET PO SCH ×2 (10:00→17:15)
[2018-06-08] MEDS: APIXAB 2.5 MG TABLET PO SCH ×2 (10:00→17:15)
[2018-06-08] MEDS: ACETAMINOPHEN 325 MG TAB PO PRN ×2 (10:25→18:27)
[2018-06-08 12:00] VITALS: BP 104/53
[2018-06-08 16:00] VITALS: BP 102/54
[2018-06-08] MEDS: FLUCONAZOLE 400MG/200ML BAG 200 ML IV SCH (16:15)
--- NOTE | 2018-06-08 16:21 | Progress Note ---
DATE: June 08, 2018 PULMONARY MEDICINE PROGRESS NOTE SUBJECTIVE: Mrs. Lagunas was seen and examined at the bedside. She continues to have low energy levels. Anterior aspect of her tongue is kind of bluish. The patient remains on nasal cannula at 1 liter per minute, 97% oxygen saturation. REVIEW OF SYSTEMS: No headaches, no bleeding. OBJECTIVE VITAL SIGNS: Afebrile. Vital signs noted per electronic record. GENERAL: In no apparent distress, alert and calm. HEENT: Normocephalic, atraumatic. NECK: Supple. Throat midline. LUNGS: Bilateral air entry, decreased breath sounds at the bases, rare rhonchi. CARDIOVASCULAR: S1 and S2 and no murmurs, rubs or gallops. ABDOMEN: Soft and nontender. EXTREMITIES: No clubbing or cyanosis. There is 1+ edema. INTEGUMENT: No rash, no purpura. LABORATORY DATA: Potassium 3.6, BUN 18, creatinine 0.74, white count 7.6, platelets 365,000. IMPRESSION 1. Fluid overload. 2. Moderate bilateral pleural effusion. 3. Postoperative state, status post cholecystectomy and then ERCP. 4. Acute gangrenous cholecystectomy. 5. Choledocholithiasis, status post stent placement. 6. Peritonitis. PLAN: 1. Continue to follow up in's and out's very closely. 2. Diuretics as tolerated to get fluid out. Cardiology suggested some medicines today. 3. Continue oxygen weaning. 4. The patient needs to mobilizer along with improvement in nutrition, and get out the fluid or else she will bounce back with shortness of breath to the hospital after she leaves. 5. Follow closely. Job#: [id number]
[2018-06-08 20:00] VITALS: BP_SYST 102; BP_SYST 91; BP_DIAS 42; BP_DIAS 54
[2018-06-09] VITALS (7 sets, daily range): BP systolic 85–96; BP diastolic 45–58
[2018-06-09 04:09] LABS: BASOPHILS % 0.1 % (0.0-1.0); EOSINOPHILS # (AUTO) 0.1 (0.0-0.4); HEMATOCRIT 26.6 % (34.2-44.1); HEMOGLOBIN 8.9 g/dL (12.0-16.0); LYMPHOCYTES # (AUTO) 0.9 (1.0-3.2); LYMPHOCYTES % 9.1 % (18.0-39.1); MEAN CORPUSCULAR HEMOGLOBIN 29.5 pg (28-32); MEAN CORPUSCULAR HGB CONC 33.5 g/dL (31-35); MEAN CORPUSCULAR VOLUME 88.1 fL (81-99); MONOCYTES # (AUTO) 0.7 (0.2-0.8); MONOCYTES % 7.2 % (4.4-11.3); NEUTROPHILS # (AUTO) 8.2 (2.1-6.9); NEUTROPHILS % 79.9 % (38.7-80.0); PLATELET COUNT 371 x10e3/uL (140-360); RED BLOOD COUNT 3.02 x10e6/uL (3.6-5.1); RED CELL DISTRIBUTION WIDTH 16.2 % (11.7-14.4)
[2018-06-09 04:25] LABS: ANION GAP 13.1 mmol/L (8-16); CALCIUM 8.2 mg/dL (8.4-10.2); CREATININE, SERUM 1.06 mg/dL (0.57-1.11); MAGNESIUM 2.5 MG/DL (1.3-2.1); POTASSIUM 4.1 mmol/L (3.5-5.1)
[2018-06-09] MEDS ORDERED: DEXTROSE 50% SYRINGE 50 ML IV PRN (04:45)
[2018-06-09] MEDS: PIPER-TAZ 3.375 GM 50 ML IV SCH ×3 (05:09→21:45)
[2018-06-09] MEDS: NYSTATIN SUSPENSION 5 ML UDC PO SCH ×4 (05:09→17:38)
--- NOTE | 2018-06-09 07:04 | Diagnostic Imaging Report ---
EXAMINATION: CHEST SINGLE (PORTABLE) INDICATION: Pleural effusion COMPARISON: 06/07/2018 FINDINGS: TUBES and LINES: Right IJ central line catheter in good position with tip of the level of the SVC. LUNGS: Lungs are not well inflated. There are bibasilar atelectasis. There is mild prominence of the central pulmonary vasculature, consistent with pulmonary venous congestion. PLEURA: Bilateral pleural effusions right greater than the left, stable HEART AND MEDIASTINUM: The cardiomediastinal silhouette is unremarkable. There are atherosclerotic calcifications within the aorta. BONES AND SOFT TISSUES: No acute osseous lesion. Soft tissues are unremarkable. UPPER ABDOMEN: No free air under the diaphragm. IMPRESSION: Findings are compatible with stable bilateral pleural effusions. Signed by: Dr. Ivan Solis M.D. on 06/09/2018 7:01 AM
[2018-06-09 07:40] LABS: BAND NEUTROPHILS % (MANUAL) 10 %; EOSINOPHILS % (MANUAL) 3 % (0-7); LYMPHOCYTES % (MANUAL) 9 % (19-48); METAMYELOCYTES % (MANUAL) 1 % (0-0); MONOCYTES % (MANUAL) 7 % (3.4-9.0); MYELOCYTES % (MANUAL) 2 % (0-0); NEUTROPHILS % (MANUAL) 68 % (40-74); PLATELET ESTIMATE ADEQUATE; PLATELET MORPHOLOGY COMMENT NORMAL
[2018-06-09 07:41] LABS: ANISOCYTOSIS SLIGHT; HYPOCHROMASIA SLIGHT; RBC MORPHOLOGY COMMENT NORMAL
[2018-06-09] MEDS: CHOLESTYRAMINE 4 GM PACKET PO PRN (07:43)
[2018-06-09] MEDS: FERROUS SULFATE 325 MG TAB PO SCH ×2 (08:00→17:00)
--- NOTE | 2018-06-09 08:21 | Consultation ---
DATE OF CONSULTATION: June 09, 2018 HISTORY OF PRESENT ILLNESS: I was kindly asked to see this 77-year-old woman for evaluation of tongue pain. The patient has a complicated history of present illness and has been treated for "thrush" with nystatin and fluconazole. She has persistent, and by her history, progressive pain in her tongue and is now having difficulty swallowing. Her history of present illness is reviewed in detail on the chart. PAST MEDICAL HISTORY AND PAST SURGICAL HISTORY: Reviewed in detail on the chart. PHYSICAL EXAMINATION: There is black necrotic tissue occupying the 1st 1.5 cm of the tip of the tongue. There is no intraoral yamileth identified. Pharyngeal examination is normal. The tympanic membranes and external auditory canals are normal. There is no palpable cervical adenopathy. 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 PLAN: 1. Surgical debridement of the necrotic tissue with biopsy. 2. Will discuss with attending physician regarding anticoagulation. Job#: [id number] TONY
[2018-06-09] MEDS ORDERED: MIDODRINE 2.5 MG TAB PO SCH ×3 (08:45→15:00)
[2018-06-09] MEDS ORDERED: LOPERAMIDE HCL 2 MG CAP PO PRN (08:45)
[2018-06-09] MEDS: DIGOXIN 0.125 MG TAB PO SCH (09:00)
[2018-06-09] MEDS: ATENOLOL 100 MG TAB PO SCH (09:00)
[2018-06-09] MEDS: APIXAB 2.5 MG TABLET PO SCH (09:00)
[2018-06-09] MEDS ORDERED: DEXTROSE 5%/0.9% SOD CHL 1,000 ML IV SCH (09:00)
[2018-06-09] MEDS ORDERED: MIDODRINE HCL 5 MG TABLET PO SCH (09:00)
[2018-06-09] MEDS: OYST-CAL-D 500MG TABLET PO SCH ×2 (09:00→17:00)
[2018-06-09] MEDS: MAGNESIUM OXIDE 400 MG TAB PO SCH ×2 (09:00→17:00)
[2018-06-09] MEDS: PANTOPRAZOLE 40 MG 10ML VIAL IV SCH (09:00)
[2018-06-09] MEDS: ASCORBIC ACID 500 MG TAB PO SCH ×2 (09:00→17:00)
[2018-06-09] MEDS: DEXTROSE 5% 1,000 ML IV SCH ×2 (10:00→22:00)
--- NOTE | 2018-06-09 10:27 | Diagnostic Imaging Report ---
EXAMINATION: Head CT without contrast HISTORY: Confusion, abdominal pain COMPARISON: None. TECHNIQUE: Multidetector axial images were obtained without contrast from the foramen magnum to the vertex . The images were reconstructed using brain and bone algorithms. Thin section brain images were reformatted into coronal and sagittal planes. Image quality: Motion/streaking artifact limits the evaluation of the skull base and posterior cranial fossa. Dose modulation, iterative reconstruction, and/or weight based adjustment of the mA/kV was utilized to reduce the radiation dose to as low as reasonably achievable FINDINGS: Parenchyma: 1. Mild to moderate confluent periventricular and arevalo radiata white matter hypodensities, most likely nonspecific chronic microvascular ischemic changes. Possible chronic lacunar infarcts in the bilateral lentiform nuclei. 2. No mass or hemorrhage. No CT evidence of acute territorial vascular insult. Extra-axial spaces:No abnormal density. No extra-axial fluid collections Brain volume: Normal for age. Ventricles: No hydrocephalus or displacement. Arteries: No density suggestive of thrombus. Dural sinuses: No abnormal density. Extra-axial spaces: No abnormal density. Foramen magnum: No mass, Chiari malformation, or basilar invagination. Sella: No obvious mass. Paranasal/mastoid sinuses: Imaged portions unremarkable. Skull/Scalp: No lytic or blastic lesions. No fractures. IMPRESSION: 1. No acute intracranial hemorrhage or cortical infarcts. 2. Moderate confluent chronic microvascular ischemic changes. Signed by: Dr. Lynda Harris M.D. on 06/09/2018 10:23 AM
[2018-06-09 10:50] LABS: ALBUMIN 1.1 g/dL (3.5-5.0); BILIRUBIN,DIRECT 0.2 mg/dL (0.0-0.5)
[2018-06-09] MEDS: MIDODRINE HCL 5 MG TABLET PO SCH (15:00)
[2018-06-09] MEDS: FLUCONAZOLE 400MG/200ML BAG 200 ML IV SCH (15:00)
--- NOTE | 2018-06-09 15:57 | Progress Note ---
DATE: June 09, 2018 PULMONARY MEDICINE PROGRESS NOTE SUBJECTIVE: Ms. Lagunas was seen and examined at bedside. She is having bowel movements. Her bladder is also working with spontaneous voiding. Oxygen saturation 96%. ENT saw the patient and plans on debridement of the anterior part of the tongue. REVIEW OF SYSTEMS: No headaches. No bleeding. OBJECTIVE VITALS: Afebrile. Vital signs noted per electronic record. GENERAL: In no acute distress. Alert and calm. HEENT: Normocephalic and atraumatic. NECK: Supple. Throat midline. LUNGS: Bilateral air entry. Few rhonchi at the bases. Decreased breath sounds at the bases. CARDIOVASCULAR: S1 and S2. No murmurs, rubs or gallops. ABDOMEN: Soft and nontender. EXTREMITIES: No clubbing. No cyanosis. There is 1-2+ leg edema. INTEGUMENT: No rash. No purpura. LABS: BUN 31, creatinine 1.1. White count 10, hematocrit 26. IMPRESSION AND PLAN 1. Fluid overload. 2. Pleural effusion: Moderate to moderate large. 3. Persistent pain and edema per automated CBC differential. 4. Admit with gangrenous cholecystitis. 5. Postoperative state: Status post cholecystectomy and endoscopic retrograde cholangiopancreatography for choledocholithiasis. 6. Encephalopathy, improved. Continue PT and OT. Get CT of the brain. ENT to debride anterior part of the tongue. Will hold apixaban right now. Cardiology to consider midodrine add on. Continue to modify cardiac medicines as needed. Continue antibiotics. Local wound care. Follow along closely. Job#: [id number] IMELDA
--- NOTE | 2018-06-09 21:27 | Progress Note ---
DATE: June 09, 2018 SUBJECTIVE: Patient reports no abdominal pain. No nausea, vomiting. She has had 1 small bowel movement. No more diarrhea. REVIEW OF SYSTEMS GENERAL: No fever or chills. CVS: No chest pain, palpitation. RESPIRATORY: No cough or expectoration. MEDICATION: Inpatient MAR reviewed. Patient is on intravenous Zosyn along with other medications. PHYSICAL EXAMINATION VITAL SIGNS: Temperature 97.1, pulse 76, respirations 20, blood pressure 96/50 to 88/50 oxygen saturation 91% on 3 L of nasal cannula. GENERAL: Elderly, frail, not in any acute distress. Oral mucosa is moist. Anicteric sclerae. CVS: S1, S2, regular, with a 3/6 flow murmur. LUNGS: Bilaterally grossly clear. ABDOMEN: Soft, nondistended, nontender. No palpable mass or hernia. MINOR drain with the minimal clear serous fluid. Is no longer bilious. Bowel sounds present. Bowel sounds are not hyperactive. EXTREMITIES: Warm. No leg edema. LABS: WBC 10.2 up from 7.6, hemoglobin 8.9, hematocrit 26.6, MCV 88.1, platelet count 371,000. Sodium 136, potassium 3.1, chloride 104, bicarb 23, BUN 31, creatinine 1.06, and glucose 57. Stool culture negative. Stool for C. diff toxin negative. IMPRESSIONS 1. Status post cholecystectomy with bile leak, status post endoscopic retrograde cholangiopancreatography with sphincterotomy and common bile duct plastic stent placement. Bile leak has resolved. 2. Sepsis, currently being treated with antibiotic. 3. Diarrhea likely secondary to use of antibiotic. This has resolved. Stool for Clostridium difficile, as well as stool culture is negative. PLAN: Postoperative care per surgery. MINOR drain is minimal. Removal of MINOR drain as per surgery. ERCP in 6 weeks electively as an outpatient for stent removal. Job#: [id number]
[2018-06-10] VITALS (22 sets, daily range): BP systolic 65–91; BP diastolic 29–48
[2018-06-10] MEDS: NYSTATIN SUSPENSION 5 ML UDC PO SCH ×2 (00:40→06:00)
[2018-06-10 05:21] LABS: BASOPHILS % 0.1 % (0.0-1.0); EOSINOPHILS # (AUTO) 0.1 (0.0-0.4); EOSINOPHILS % 0.6 % (0.0-6.0); HEMATOCRIT 24.7 % (34.2-44.1); HEMOGLOBIN 7.9 g/dL (12.0-16.0); LYMPHOCYTES # (AUTO) 0.7 (1.0-3.2); LYMPHOCYTES % 6.1 % (18.0-39.1); MEAN CORPUSCULAR HEMOGLOBIN 28.9 pg (28-32); MEAN CORPUSCULAR VOLUME 90.5 fL (81-99); MONOCYTES % 8.9 % (4.4-11.3); NEUTROPHILS % 81.8 % (38.7-80.0); PLATELET COUNT 358 x10e3/uL (140-360); RED BLOOD COUNT 2.73 x10e6/uL (3.6-5.1); RED CELL DISTRIBUTION WIDTH 16.7 % (11.7-14.4)
[2018-06-10 05:55] LABS: ALBUMIN 1.1 g/dL (3.5-5.0); ANION GAP 12.1 mmol/L (8-16); BILIRUBIN,DIRECT 0.2 mg/dL (0.0-0.5); CALCIUM 7.9 mg/dL (8.4-10.2); CREATININE, SERUM 1.51 mg/dL (0.57-1.11); MAGNESIUM 2.7 MG/DL (1.3-2.1); POTASSIUM 4.1 mmol/L (3.5-5.1)
[2018-06-10] MEDS: PIPER-TAZ 3.375 GM 50 ML IV SCH ×2 (06:00→14:00)
[2018-06-10 06:49] LABS: BAND NEUTROPHILS % (MANUAL) 9 %; LYMPHOCYTES % (MANUAL) 13 % (19-48); MONOCYTES % (MANUAL) 17 % (3.4-9.0); NEUTROPHILS % (MANUAL) 58 % (40-74); NUCLEATED RED BLOOD CELLS 1
[2018-06-10 06:51] LABS: ANISOCYTOSIS SLIGHT; HYPOCHROMASIA MODERATE; PLATELET ESTIMATE ADEQUATE; PLATELET MORPHOLOGY COMMENT FEW LARGE; RBC MORPHOLOGY COMMENT NORMAL
[2018-06-10] MEDS: MIDODRINE HCL 5 MG TABLET PO SCH (07:00)
[2018-06-10] MEDS ORDERED: MIDODRINE 2.5 MG TAB PO SCH ×2 (07:00→15:00)
[2018-06-10] MEDS: FERROUS SULFATE 325 MG TAB PO SCH (08:00)
[2018-06-10] MEDS: PANTOPRAZOLE 40 MG 10ML VIAL IV SCH (08:34)
[2018-06-10] MEDS: OYST-CAL-D 500MG TABLET PO SCH (09:00)
[2018-06-10] MEDS: ASCORBIC ACID 500 MG TAB PO SCH (09:00)
[2018-06-10] MEDS: MAGNESIUM OXIDE 400 MG TAB PO SCH (09:00)
[2018-06-10] MEDS: DIGOXIN 0.125 MG TAB PO SCH (09:00)
[2018-06-10] MEDS ORDERED: SODIUM CHLORIDE 0.9% 1000ML 1,000 ML ONE (09:06)
[2018-06-10] MEDS ORDERED: SODIUM CHLORIDE 0.9% 1000ML 1,000 ML IV SCH (09:15)
[2018-06-10] MEDS ORDERED: MORPHINE SULFATE INJ 4 MG/ML INJ IV PRN (13:30)
[2018-06-10] MEDS ORDERED: MORPHINE SULFATE 2 MG/ML SYR IV PRN (13:45)
--- NOTE | 2018-06-10 13:45 | Progress Note ---
DATE: June 10, 2018 PULMONARY MEDICINE PROGRESS NOTE SUBJECTIVE: Ms. Lagunas was seen and examined at bedside. She continues with worsening status. She had acute altered mental status changes yesterday, also some low normal blood pressure. Family was highly concerned. Patient still has not gone back to the mentation she had 2 days ago. Conversation made with family. They seem to considering options including more palliation. REVIEW OF SYSTEMS: No headaches. No bleeding. OBJECTIVE VITAL SIGNS: Afebrile. Vital signs noted per electronic record. GENERAL: In no acute distress, alert and calm. HEENT: Normocephalic, atraumatic. NECK: Supple. Throat midline. LUNGS: Bilateral air entry, decreased breath sounds, decreased effort. CARDIOVASCULAR: S1 and S2. No murmurs, rubs, or gallops. ABDOMEN: Soft, nontender. EXTREMITIES: No clubbing, no cyanosis. There is 1-2+ edema. INTEGUMENT: No rash, no purpura. LABORATORY DATA: BUN 37, creatinine 1.5. Potassium 4.1. White count 11, hematocrit 25, platelets 258. Albumin is 1.1. IMPRESSION AND PLAN 1. Acute gangrenous cholecystitis. 2. Choledocholithiasis. 3. Chronic kidney disease, acute kidney injury. 4. Encephalopathy. 5. Hypotension. 6. Severe protein-calorie malnutrition. Continue oxygen supportively. Pain medicines as needed. I discussed with family and they are convinced they want more comfort care. Hospice has been consulted and we wait decision. Job#: [id number] YAMILKA
[2018-06-10] MEDS: ONDANSETRON HCL INJ 2 MG/ML VIAL IV PRN (13:50)
[2018-06-10] MEDS: FLUCONAZOLE 400MG/200ML BAG 200 ML IV SCH (15:00)
== END 2018-06-10 17:54 | disposition hospice, inpatient (51) | DRG 853 ==
LOC: ER 09:11 → ERHOLD 16:46 → MED/SURG2 16:48 → IMCU 05-30 14:30 → ICU 05-30 16:10 → MED/SURG2 06-01 19:45 → IMCU 06-10 08:15
PROVIDERS: ADMIT Internal Medicine; ATTEND Internal Medicine
PROC: 0FT44ZZ Resection of Gallbladder, Percutaneous Endoscopic Approach (ICD-10-PCS; principal; 2018-05-27 10:00)
PROC: 02HV33Z Insertion of Infusion Device into Superior Vena Cava, Percutaneous Approach (ICD-10-PCS; 2018-06-02)
PROC: B548ZZA Ultrasonography of Superior Vena Cava, Guidance (ICD-10-PCS; 2018-06-02)
PROC: 0F9980Z Drainage of Common Bile Duct with Drainage Device, Via Natural or Artificial Opening Endoscopic (ICD-10-PCS; 2018-06-03)
DX: A41.9 Sepsis, unspecified organism (principal); K82.2 Perforation of gallbladder; K85.90 Acute pancreatitis without necrosis or infection, unspecified; E43 Unspecified severe protein-calorie malnutrition; R65.21 Severe sepsis with septic shock; G92 Toxic encephalopathy; K80.62 Calculus of gallbladder and bile duct with acute cholecystitis without obstruction; Z68.1 Body mass index [BMI] 19.9 or less, adult; R18.8 Other ascites; K76.6 Portal hypertension; N17.9 Acute kidney failure, unspecified; J90 Pleural effusion, not elsewhere classified; K91.89 Other postprocedural complications and disorders of digestive system; K52.1 Toxic gastroenteritis and colitis; B37.0 Candidal stomatitis; K56.7 Ileus, unspecified; F17.210 Nicotine dependence, cigarettes, uncomplicated; Z88.6 Allergy status to analgesic agent; Z88.2 Allergy status to sulfonamides; Z88.8 Allergy status to other drugs, medicaments and biological substances; I10 Essential (primary) hypertension; K21.9 Gastro-esophageal reflux disease without esophagitis; F03.90 Unspecified dementia, unspecified severity, without behavioral disturbance, psychotic disturbance, mood disturbance, and anxiety; Z86.73 Personal history of transient ischemic attack (TIA), and cerebral infarction without residual deficits; Z83.3 Family history of diabetes mellitus; Z80.9 Family history of malignant neoplasm, unspecified; N28.89 Other specified disorders of kidney and ureter; K14.8 Other diseases of tongue; E83.42 Hypomagnesemia; E87.70 Fluid overload, unspecified; E87.6 Hypokalemia; R19.7 Diarrhea, unspecified; Y92.230 Patient room in hospital as the place of occurrence of the external cause; Z79.01 Long term (current) use of anticoagulants; R33.9 Retention of urine, unspecified; E83.51 Hypocalcemia; D64.9 Anemia, unspecified; I48.0 Paroxysmal atrial fibrillation; Z66 Do not resuscitate
CPT/HCPCS: 36415; 36556; 43260; 70450; 71045; 74177; 74181; 74183; 74328; 76937; 78226; 80048; 80053; 80061; 80076; 80202; 81001; 82140; 82150; 82270; 82607; 82728; 82746; 82948; 83540; 83605; 83690; 83735; 83880; 84100; 84436; 84443; 84466; 84479; 84550; 85025; 86850; 86900; 86920; 87040; 87045; 87086; 87493; 88304; 93005; 93306; 94640; 96361; 97139; 99284; A9537; C1751; C2625; J0360; J0610; J0694; J1100; J1160; J1450; J1650; J1940; J2001; J2250; J2270; J2370; J2405; J2543; J2550; J2805; J3370; J3480; J7030; J7050; J7070; J7120; J7799; P9016; Q9967